=== PATIENT | female | born 1940 | race Hispanic/Latino ===

== ENCOUNTER 2018-03-11 09:48 | Observation (INO) | payer MEDICARE ==
[2018-03-09 09:20] VITALS: BMI 42.0
[2018-03-11] MEDS ORDERED: Lidocaine 1% Inj (20ml) IJ ONE (10:19)
--- NOTE | 2018-03-11 10:26 | CP.SDSHP ---
Same Day Surgery H & P - History Proposed Procedure: Surgical repair of left achilles tendon rupture Pre-Op Diagnosis: Left achilles tendon rupture - Allergies Allergies: Allergies doxycycline [From Vibramycin] Allergy (Verified 03/09/18 09:21) RASH - Date & Time Date: 03/11/18 Time: 17:00 Short Stay Discharge - Short Stay Discharge Admitting Diagnosis/Reason for Visit: S86.012A/G89.11 Disposition: HOME/ ROUTINE Referrals: Haseeb Mcconnell MD [Staff Provider] - Taran Atwood MD, PhD [Primary Care Provider] - Instructions: Achilles Tendon Rupture (DC), Nerve Blocks Additional Instructions (Diet, Activity): -Patient in good/stable condition for discharge home -Pt to resume medications per medical reconciliation -Resume regular diet Please keep dressing clean, dry, & intact to surgical site -Use plastic bag over bandage for showering -Wear post op shoe at all times when ambulating -Call clinic if you see signs of infection (redness, swelling, malodor) -Please make an appointment to see Dr. Mcconnell in office/clinic within 1 week for post-op check Progress Note/Discharge Note with Instructions: - Patient evaluated bedside in recovery s/p surgical procedure. - After surgical procedure patient in NAD - (+) Void, (+) Appetite - Capillary refill time <3s and NVSI intact. - Patient denies complaints at this time - Post operative instructions and plan of care explained to patient at length. - Pt. acknowledges understanding. - Patient stable for DC per podiatric surgery
--- NOTE | 2018-03-11 10:26 | CP.PCM.PN ---
Subjective - Date & Time of Evaluation Date of Evaluation: 03/11/18 Time of Evaluation: 10:25 - Subjective Subjective: 77 yo female patient seen and evaluated for left achilles repair surgery. Patient fell about a month ago, went to a [facility] where she was diagnosed with a bad sprain, then followed up in Dr. Mcconnell's office when the pain wasn' t resolving, where she was diagnosed with an achilles tendon tear. She is in mild pain today and has been taking tylenol as needed for the pain. She stopped taking her baby asprin and clopidogrel on Friday. Her last meal was at 8pm last night and she denies drinking or eating anything since that time. She has had surgeries in the past and denies any reactions to anesthesia. Patients is accompanying her bedside. Denies N/F/V/SOB/CP. PMHx: HTN Social: Denies tobacco use All: NKDA Objective - Medications Medications: Current Medications Bupivacaine HCl (Marcaine 0.5%) 20 ml IJ ONCE ONE Stop: 03/11/18 10:20 Cefazolin Sodium 2 gm/ Sodium (Chloride) 100 mls @ 100 mls/hr IVPB ONCE ONE PRN Reason: Protocol Stop: 03/11/18 11:18 Sodium Chloride (Sodium Chloride 0.9%) 1,000 mls @ 0 mls/hr IV .Q0M CHUY PRN Reason: Per Protocol Stop: 03/12/18 10:19 Lidocaine HCl (Lidocaine 1% (20ml)) 20 ml IJ ONCE ONE Stop: 03/11/18 10:20 - Constitutional Appears: Well, Non-toxic, No Acute Distress - Head Exam Head Exam: ATRAUMATIC, NORMOCEPHALIC - Extremities Exam Additional comments: LLE focused exam: Vascular: DP/PT 2/4, CFT <3 seconds, mild edema to left ankle, TG WNL Ortho: Tenderness to palpation of calf, pain upon palpation of achilles tendon, MMT 4/5 due to patient guarding. Palpable gap to left achilles tendon. Neuro: Gross and protective sensation intact Derm: No ecchymosis, no open lesions, no erythema, no clincal signs of infection - Neurological Exam Neurological Exam: Alert, Awake, Oriented x3 - Psychiatric Exam Psychiatric exam: Normal Affect, Normal Mood Assessment and Plan - Assessment and Plan (Free Text) Assessment: 77 yo female patient seen and evaluated for left achilles repair surgery. Plan: Pt was seen and examined in SDS Pt NPO status was confirmed All pre-op testing and clearance in chart Pt has exhausted all conservative treatment at this time and is opting for surgical intervention Pt was explained procedure and post-operative course All pt's questions were answered to satisfaction No guarantees were made Pt understands all risks, benefits and complications of procedure Pt will follow-up with Dr. Mcconnell within 1 week of surgery
[2018-03-11] MEDS ORDERED: Sodium Chloride 0.9% 1,000 ML IV SCH (10:30)
[2018-03-11] MEDS ORDERED: Propofol 10 mg/ml Inj (20 ML) ONE (11:03)
[2018-03-11] MEDS ORDERED: Succinylcholine 200 mg/10 ml Inj IV ONE (11:03)
[2018-03-11] MEDS ORDERED: Etomidate 20 mg/10ml Inj IV ONE (11:04)
[2018-03-11] MEDS ORDERED: Bupivacaine HCl 0.25% PF (30 ml) Inj ONE (11:04)
[2018-03-11] MEDS ORDERED: EPINEPHrine 1 mg/ml (1:1000) Inj ONE (11:04)
[2018-03-11] MEDS ORDERED: Rocuronium 10 mg/ml (5 ml) ONE (11:04)
[2018-03-11] MEDS ORDERED: Lactated Ringer's 1,000 ML IV ONE ×3 (11:45→15:00)
[2018-03-11] MEDS ORDERED: Bupivacaine 0.5% Inj(30mL) IJ ONE (11:45)
[2018-03-11] MEDS ORDERED: Lidocaine 2% PF (10 ml) Amp ONE (11:54)
[2018-03-11] MEDS ORDERED: Bupivacaine HCl 0.5% PF (30 ml) Inj ONE (11:54)
[2018-03-11] MEDS ORDERED: ceFAZolin IV 1 gm in Dextrose 2 GM/100 ML BAG IVPB ONE (11:54)
[2018-03-11] MEDS ORDERED: ceFAZolin IV 2 gm in Dextrose 2 GM/50 ML BAG IVPB ONE (12:00)
[2018-03-11] MEDS ORDERED: Ropivacaine 0.5% 30ML IV ONE (12:23)
[2018-03-11] MEDS ORDERED: Dexamethasone 4 mg/1 ml ONE (13:16)
[2018-03-11] MEDS ORDERED: ePHEDrine 50 mg/ml Inj ONE (13:42)
[2018-03-11] MEDS ORDERED: Oxycodone/Acetaminophen 5/325 mg Tab PO PRN (15:34)
--- NOTE | 2018-03-11 15:40 | PCM.SURG1 ---
Surgeon's Initial Post Op Note - Surgeon's Notes Surgeon: Dr. Mcconnell Hand Filer Balance Wheel: Dr. Luu, PGY 3, Dr. Rubio PGY3, Dr. Benitez, PGY 2 Type of Anesthesia: General Endo Anesthesia Administered By: Dr. Efra Shea Pre-Operative Diagnosis: Left achilles tendon rupture Operative Findings: See dictation. M:2-0 fiberwire, arthrex suturetaks, 2-0 vicryl, 3-0 vicryl, 4-0 vicryl, 4-0 monocril Post-Operative Diagnosis: same Operation Performed: Surgical repair of left achilles rupture Specimen/Specimens Removed: none Estimated Blood Loss: EBL {In ML}: 2 Blood Products Given: N/A Drains Used: No Drains Post-Op Condition: Good Date of Surgery/Procedure: 03/11/18 Time of Surgery/Procedure: 15:43
[2018-03-11] MEDS ORDERED: HYDROmorphone 0.5 mg/0.5 ml ISec IVP PRN (15:49)
--- NOTE | 2018-03-11 17:48 | CP.PCM.HP ---
History of Present Illness - History of Present Illness History of Present Illness: 77 YO F w/ PMH of HTN, CAD, arthritis, obstructed sleep apnea is being admitted for observation s/p Left Achilles repair POD 0. - Patient fell one month ago and was diagnosed with ankle sprain at [facility]. After limited improvement had gone to Dr. Riddle office and was diagnosed with achlles tendon repair. - Patient doing well on POD 0. Tolerated the procedure well. Pain is well controlled. She is able to move her toes and sensation is intact. PMH: HTN. Obstructed sleep apnea, CAD, Rosacea, Arthritis PSH: Gallbladder, partial hysterectomy, B/L knee replacement Allergy: Environmental SH: Denies illcit drug use, lives with . Present on Admission - Present on Admission Any Indicators Present on Admission: No Past Patient History - Past Medical History & Family History Past Medical History?: Yes - Past Social History Smoking Status: Never Smoked - CARDIAC Hx Cardiac Disorders: Yes Hx Hypertension: Yes - PULMONARY Hx Respiratory Disorders: No - NEUROLOGICAL Hx Neurological Disorder: No - HEENT Hx HEENT Problems: Yes Hx Cataracts: Yes (mild) Hx Macular Degeneration: Yes (mild) - RENAL Hx Chronic Kidney Disease: No - ENDOCRINE/METABOLIC Hx Endocrine Disorders: No - HEMATOLOGICAL/ONCOLOGICAL Hx Blood Disorders: No - INTEGUMENTARY Hx Dermatological Problems: No - MUSCULOSKELETAL/RHEUMATOLOGICAL Hx Musculoskeletal Disorders: Yes Hx Arthritis: Yes (general/hands) - GASTROINTESTINAL Hx Gastrointestinal Disorders: No - GENITOURINARY/GYNECOLOGICAL Hx Genitourinary Disorders: No - PSYCHIATRIC Hx Psychophysiologic Disorder: No - SURGICAL HISTORY Hx Surgeries: Yes Hx Cholecystectomy: Yes Hx Hysterectomy: Yes Hx Orthopedic Surgery: Yes (total knees bilateral) Other/Comment: trigger finger bilateral,rectal cyst,plantar wart on left foot - ANESTHESIA Hx Anesthesia: Yes Hx Anesthesia Reactions: No Has any member of the family had a problem w/ anesthesia?: No Meds Allergies/Adverse Reactions: Allergies Allergy/AdvReac Type Severity Reaction Status Date / Time doxycycline [From Vibramycin] Allergy RASH Verified 03/11/18 11:08 Physical Exam - Constitutional Appears: No Acute Distress - Head Exam Head Exam: NORMAL INSPECTION - Eye Exam Eye Exam: Normal appearance - ENT Exam ENT Exam: Mucous Membranes Moist, Normal Exam - Respiratory Exam Respiratory Exam: Clear to Auscultation Bilateral, NORMAL BREATHING PATTERN. absent: Rhonchi, Wheezes - Cardiovascular Exam Cardiovascular Exam: REGULAR RHYTHM, +S1, +S2 - GI/Abdominal Exam GI & Abdominal Exam: Normal Bowel Sounds, Soft. absent: Tenderness - Extremities Exam Additional comments: left foot immobilized and dressing C/D/I. Patient able to move toes, Capilary refill <2 sec, sensation intact No right calf tenderness - Neurological Exam Neurological exam: Alert, CN II-XII Intact, Oriented x3 - Skin Skin Exam: Normal Color, Warm Results - Vital Signs Recent Vital Signs: Last Vital Signs Temp 97.2 F L 03/11/18 15:55 Pulse 52 L 03/11/18 17:20 Resp 18 03/11/18 17:20 BP 121/79 03/11/18 17:20 Pulse Ox 97 03/11/18 17:20 Assessment & Plan - Assessment and Plan (Free Text) Assessment: 1) HTN - Hydrocholorathiazide 12.5 mg every other day - Bystolic 20 mg daily - Will start medication tomorrow morning currently well controlled 2) S/P Left achilles tendon repair - POD 0 - pain medication ordered - Podietry consulted 3)Mild intermitant asthma - Ventolin - Singulair 10 mg PO 4) Obstructive Sleep apnea -CPAP ordered FIO2: 21% pressure: 9 5) CAD - Asprin 81 mg daily 6)DVT prophylaxis - SCD for now - Ghassan discuss with surgical team and start lovenox tomorrow morning.
[2018-03-11] MEDS ORDERED: Lactated Ringer's 500 ML IV ONE (18:00)
[2018-03-11] MEDS ORDERED: Albuterol HFA 90 mcg/actuation (8 g) INH PRN (18:23)
[2018-03-11] MEDS: Lactated Ringer's 1,000 ML IV SCH (22:35)
[2018-03-12] MEDS: Lactated Ringer's 1,000 ML IV SCH (00:24)
--- NOTE | 2018-03-12 07:01 | PCM.ANESB2 ---
Popliteal Nerve Block - Popliteal Nerve Block Date of Procedure: 03/11/18 (Performed at 1530) Anesthesiologist: Víctor Shea Pre-Procedure Diagnosis: L achilles tendon tear Post-Procedure Diagnosis: L achilles tendon tear Procedure Performed: Popliteal Nerve Block Left - Procedure Popliteal Nerve Block: This procedure was explained to the patient that it is for post-operative pain management. Consent was obtained after a thorough discussion with the patient regarding the benefits and possible complications of local anesthetic block of the sciatic nerve at the popliteal level. The patient was brought to the operating room and standard monitors are applied. Time-out was held with the circulating nurse to confirm the correct surgery and the appropriate block. After safetly inducing general anesthesia and placing an endotracheal tube, the patient's operative leg was gently raised and supported and the groove in between the biceps femoris and vastus lateralis muscles was carefully palpated. The skin approximately 8cm above the popliteal crease was then marked. The ultrasound transducer was then applied to the posterior thigh approximately 8cm above the popliteal crease in the transverse plane and the sciatic nerve before its division was visualized lateral to the popliteal artery and in between the bicep femoris and semimembranosus/semitendinosus muscles. After identification, the lateral portion of the thigh was prepped with chlorhexidine. At this point, a # 21 gauge Stimuplex insulated 4 inch needle was inserted into pre-marked area and advanced in a perpendicular direction. The needle was inserted above the ultrasound transducer in-plane towards the sciatic nerve in a [id number] direction. Needle advancement was performed carefully under direct ultrasound visualization. Nerve stimulator was used and dorsiflexion of the left foot was elicited at a current of 1 MA. After repeated negative aspiration, 30cc of 0.5 % ropivacaine was injected. Under ultrasound guidance the local anesthetics were observed surrounding sciatic nerve . The needle was removed intact and sterile dressing was applied. A repeat block was performed at the end of the operative procedure with 10cc 0.25% bupivacaine as there was concern that the initial nerve block did not work adequately during the case. The patient tolerated the popliteal nerve block well with stable vital signs and was subsequently prepared for the surgery. The patient stated that her operative leg was comfortably numb from the nerve block and only endorsed tourniquet pain at the end of the procedure.
[2018-03-12 08:16] LABS: BASO % 0.1 % (0.0-2.0); HEMOGLOBIN 12.6 g/dL (12.0-16.0); LYMPH # 1.4 K/uL (1.0-4.3); LYMPH % 10.7 % (20.0-40.0); MEAN CELL VOLUME 84.2 fl (81.0-99.0); MEAN CORPUSCULAR HEMOGLOBIN 28.1 pg (27.0-31.0); MEAN CORPUSCULAR HGB CONC 33.4 g/dL (33.0-37.0); MEAN PLATELET VOLUME 8.3 fl (7.2-11.7); MONO # 1.2 K/uL (0.0-0.8); NEUT # 10.5 K/uL (1.8-7.0); NEUT % 80.2 % (50.0-75.0); RBC 4.47 Mil/uL (3.80-5.20); RED CELL DISTRIBUTION WIDTH 14.4 % (11.5-14.5); WHITE BLOOD COUNT 13.1 K/uL (4.8-10.8)
--- NOTE | 2018-03-12 09:17 | CP.PCM.DIS ---
Provider - Provider Date of Admission: 03/11/18 18:14 Attending physician: Therese Sotelo MD Primary care physician: Taran Atwood MD Phd Consults: Podiatry, Dr. Mcconnell Time Spent in preparation of Discharge (in minutes): 40 Diagnosis - Discharge Diagnosis (1) Rupture of left Achilles tendon Status: Acute Comment: S/p Repair, POD#1 (2) Hypertension Status: Chronic Comment: - Hydrocholorathiazide 12.5 mg every other day. - Bystolic 20 mg daily (3) Mild intermittent asthma Status: Acute Comment: - Ventolin. - Singulair 10 mg PO (4) ESTELLE (obstructive sleep apnea) Status: Acute Comment: CPAP (5) CAD (coronary artery disease) Status: Acute Hospital Course - Lab Results Lab Results: Most Recent Lab Values WBC 13.1 K/uL (4.8-10.8) H 03/12/18 07:58 RBC 4.47 Mil/uL (3.80-5.20) 03/12/18 07:58 Hgb 12.6 g/dL (12.0-16.0) 03/12/18 07:58 Hct 37.6 % (34.0-47.0) 03/12/18 07:58 MCV 84.2 fl (81.0-99.0) 03/12/18 07:58 MCH 28.1 pg (27.0-31.0) 03/12/18 07:58 MCHC 33.4 g/dL (33.0-37.0) 03/12/18 07:58 RDW 14.4 % (11.5-14.5) 03/12/18 07:58 Plt Count 207 K/uL (130-400) 03/12/18 07:58 MPV 8.3 fl (7.2-11.7) 03/12/18 07:58 Neut % (Auto) 80.2 % (50.0-75.0) H 03/12/18 07:58 Lymph % (Auto) 10.7 % (20.0-40.0) L 03/12/18 07:58 [place] % (Auto) 9.0 % (0.0-10.0) 03/12/18 07:58 Eos % (Auto) 0.0 % (0.0-4.0) 03/12/18 07:58 Baso % (Auto) 0.1 % (0.0-2.0) 03/12/18 07:58 Neut # (Auto) 10.5 K/uL (1.8-7.0) H 03/12/18 07:58 Lymph # (Auto) 1.4 K/uL (1.0-4.3) 03/12/18 07:58 [place] # (Auto) 1.2 K/uL (0.0-0.8) H 03/12/18 07:58 Eos # (Auto) 0.0 K/uL (0.0-0.7) 03/12/18 07:58 Baso # (Auto) 0.0 K/uL (0.0-0.2) 03/12/18 07:58 POC Glucose (mg/dL) 125 mg/dL (65-110) H 03/12/18 05:43 - Hospital Course Hospital Course: 77 y/o F with PMH of HTN, ESTELLE, Mild intermittent asthma, and CAD admitted to [facility] for evaluation and treatment of s/p Left Achilles tendon repair. Podiatry, Dr. Mcconnell was consulted for the surgery. Patient is s/p POD#3, Left Achilles tendon repair, pain is controlled with medications. Patient was seen by PT who recommended TCU for further physical therapy and treatment (not accepted). Patient refused subacute rehab. Home care was referred for PT/DRAFTING TEACHER and Walker was delivered to her house yesterday. Patient is stable, having BMs and agrees with discharge plan, instructed to c/w home medications except bystolic ( Patient has all the medications, doesn't need any refills). Patient Spoke with Dr. Mcconnell for Tramadol Rx; who will send it to her pharmacy for pain management. Patient has percocet at home. Patient was discharged home with instructions to follow up with PMD, and Follow up with podiatry with in 1 week of discharge. Medications: C/w home medications except Bystolic (stable BP and bradycardic in hospital w/o Bystolic), follow up PMD for further managements. C/w pain management. Discharge Exam - Head Exam Head Exam: NORMAL INSPECTION - Eye Exam Eye Exam: EOMI, Normal appearance, PERRL Pupil Exam: NORMAL ACCOMODATION - Respiratory Exam Respiratory Exam: Clear to PA & Lateral, NORMAL BREATHING PATTERN. absent: Accessory Muscle Use, Chest Wall Tenderness, Decreased Breath Sounds, Prolonged Expiratory Phase, Rales, Rhonchi, Respiratory Distress - Cardiovascular Exam Cardiovascular Exam: REGULAR RHYTHM, +S1, +S2 - GI/Abdominal Exam GI & Abdominal Exam: Normal Bowel Sounds, Soft. absent: Distended, Organomegaly , Tenderness - Extremities Exam Additional comments: left foot immobilized and dressing C/D/I. Patient able to move toes, Capilary refill <2 sec, sensation intact No right calf tenderness - Back Exam Back exam: absent: CVA tenderness (L), CVA tenderness (R) - Neurological Exam Neurological exam: Alert, CN II-XII Intact, Oriented x3 - Psychiatric Exam Psychiatric exam: Normal Affect, Normal Mood - Skin Skin Exam: Dry, Intact, Normal Color, Warm Discharge Plan - Follow Up Plan Condition: GOOD Disposition: HOME/ ROUTINE Instructions: Achilles Tendon Rupture (DC), Nerve Blocks Additional Instructions: -Patient in good/stable condition for discharge home -Pt to resume medications per medical reconciliation (Hold Bystolic till seen by PMD) -Resume regular diet Please keep dressing clean, dry, & intact to surgical site -Use plastic bag over bandage for showering -Wear post op shoe at all times when ambulating -Call clinic if you see signs of infection (redness, swelling, malodor) -Please make an appointment to see Dr. Mcconnell in office/clinic within 1 week for post-op check Referrals: Haseeb Mcconnell MD [Staff Provider] - Taran Atwood MD, PhD [Primary Care Provider] -
[2018-03-12 10:12] LABS: BLOOD UREA NITROGEN 22 mg/dl (7-17); CALCIUM 8.7 mg/dL (8.4-10.2); GFR NON-AFRICAN AMERICAN > 60
[2018-03-12] MEDS: Benzocaine/Menthol (Cepacol) Lozenge PO PRN ×3 (13:34→22:43)
--- NOTE | 2018-03-12 16:21 | CP.PCM.PN ---
Subjective - Date & Time of Evaluation Date of Evaluation: 03/12/18 Time of Evaluation: 08:00 - Subjective Subjective: Patient was seen and examined this morning at bedside, NAD. Patient is s/p POD#1 , Left Achilles tendon repair, reports well controlled pain on medications. patient is tolerating PO intake, Denies nay acute event overnight, denies any chest pain, SOB, weakness, dizziness, abdominal pain or urinary symptoms. Objective - Vital Signs/Intake and Output Vital Signs (last 24 hours): Temp Pulse Resp BP Pulse Ox 98.6 F 50 L 20 135/70 97 03/12/18 16:07 03/12/18 16:07 03/12/18 16:07 03/12/18 16:07 03/12/18 16:07 Intake and Output: 03/12/18 03/12/18 06:59 18:59 Output Total 800 Balance -800 - Medications Medications: Current Medications Acetaminophen (Tylenol 325mg Tab) 650 mg PO Q4 PRN PRN Reason: Pain, Mild (1-3) Albuterol (Ventolin Hfa 90 Mcg/Actuation (8 G)) 2 puff INH RQ6 PRN PRN Reason: Shortness of Breath Aspirin (Ecotrin) 81 mg PO DAILY [facility] Last Admin: 03/12/18 08:49 Dose: Not Given Benzocaine/Menthol (Cepacol Sore Throat) 1 laly PO Q2 PRN PRN Reason: Sore Throat Last Admin: 03/12/18 13:34 Dose: 1 laly Celecoxib (Celebrex) 200 mg PO BID [facility] Last Admin: 03/12/18 08:43 Dose: 200 mg Diazepam (Valium) 5 mg PO Q8 PRN PRN Reason: Muscle spasm Docusate Sodium (Colace) 100 mg PO BID [facility] Last Admin: 03/12/18 13:59 Dose: 100 mg Hydrochlorothiazide (Microzide) 12.5 mg PO QOTHERDAY [facility] Last Admin: 03/12/18 08:43 Dose: 12.5 mg Loratadine (Claritin) 10 mg PO DAILY [facility] Last Admin: 03/12/18 08:49 Dose: Not Given Oxycodone/Acetaminophen (Percocet 5/325 Mg Tab) 1 tab PO Q4 PRN PRN Reason: Pain, moderate (4-7) Stop: 03/14/18 15:35 Oxycodone/Acetaminophen (Percocet 5/325 Mg Tab) 2 tab PO Q6 PRN PRN Reason: Pain, severe (8-10) Stop: 03/14/18 15:35 - Labs Labs: 03/12/18 07:58 03/12/18 09:48 - Constitutional Appears: No Acute Distress - Head Exam Head Exam: NORMAL INSPECTION - Eye Exam Eye Exam: EOMI, Normal appearance, PERRL Pupil Exam: NORMAL ACCOMODATION - ENT Exam ENT Exam: Mucous Membranes Moist - Neck Exam Neck Exam: Full ROM, Normal Inspection - Respiratory Exam Respiratory Exam: Clear to Ausculation Bilateral, NORMAL BREATHING PATTERN - Cardiovascular Exam Cardiovascular Exam: REGULAR RHYTHM, +S1, +S2 - GI/Abdominal Exam GI & Abdominal Exam: Soft, Normal Bowel Sounds. absent: Tenderness, Rebound - Extremities Exam Additional comments: left foot immobilized and dressing C/D/I. Patient able to move toes, Capilary refill <2 sec, sensation intact No right calf tenderness - Back Exam Back Exam: NORMAL INSPECTION. absent: CVA tenderness (L), CVA tenderness (R) - Neurological Exam Neurological Exam: Alert, Awake, CN II-XII Intact, Oriented x3 - Psychiatric Exam Psychiatric exam: Normal Affect - Skin Skin Exam: Dry, Intact, Normal Color, Warm Assessment and Plan (1) Rupture of left Achilles tendon Status: Acute (2) Hypertension Status: Chronic (3) Mild intermittent asthma Status: Acute (4) ESTELLE (obstructive sleep apnea) Status: Acute (5) CAD (coronary artery disease) Status: Acute - Assessment and Plan (Free Text) Assessment: S/P Left achilles tendon repair - POD#1 - pain medication: Oxycodone - Podiatry consulted, Dr. Mcconnell - Follow up PT recommendations - C/w diet, Spirometry and follow up Podiatry recommendations HTN - Hydrocholorathiazide 12.5 mg every other day - Bystolic 20 mg daily held due to derrick and normotensive Mild intermitant asthma - Ventolin - Singulair 10 mg PO Obstructive Sleep apnea -CPAP PRN CAD - Asprin 81 mg daily DVT prophylaxis - SCD for now - Lovenox 40mg SC daily
[2018-03-12] MEDS: Enoxaparin 40 mg Syringe SC SCH (21:20)
[2018-03-13] MEDS: Oxycodone/Acetaminophen 5/325 mg Tab PO PRN ×2 (06:19→19:03)
--- NOTE | 2018-03-13 06:28 | OP ---
Copied To: Milady Luu DPM Attending MD: Haseeb Mcconnell DPM PROCEDURE DATE: 03/11/2018 PREOPERATIVE DIAGNOSIS: Complete rupture of the left Achilles tendon. POSTOPERATIVE DIAGNOSIS: Complete rupture of the left Achilles tendon. PROCEDURE PERFORMED: Surgical repair and reinforcement of the left Achilles tendon with the use of tendon anchors and biomaterial graft and use of platelet-rich plasma. SURGEON: Haseeb Mcconnell DPM. CURRICULUM ADVISORY TEACHER: Milady Luu DPM, PGY-3; Tania Rubio DPM, PGY-3; and Dr. Rey Benitez DPM, PGY-2. ANESTHESIOLOGIST: Dr. Shea. ANESTHESIA: General with popliteal block. INDICATIONS: The patient is a 77-year-old female with the above-mentioned diagnosis. The patient is being treated by Dr. Mcconnell in the office on outpatient basis where she has exhausted multiple forms of conservative treatment. The patient seeks surgical intervention at this time. All risks, benefits, and possible complications to the proposed procedure have been explained to the patient at length. The patient verbalizes understanding and wishes to proceed. All questions were answered. No guarantees were given nor implied. Consent was signed and n.p.o. status was confirmed prior to bringing the patient to the operating room. OPERATIVE PROCEDURE: The patient was brought into the operating room and placed on the operating room table in a prone position. A well-padded pneumatic ankle tourniquet was applied to the patient's left ankle in supramalleolar position. Once general anesthesia was achieved, the left foot was then prepped and draped in the usual sterile manner and the procedure began. DESCRIPTION OF PROCEDURE: Surgical repair and reinforcement of the left Achilles tendon with the use of tendon anchors and Biograft material and platelet-rich plasma. Attention was directed to the posterior aspect of the left leg when approximately 10 cm linear longitudinal was made just, medial to the midline of the Achilles tendon. The incision was deepened to the subcutaneous tissue using a combination of sharp and blunt dissection. Care was taken to identify and retract all vital neurovascular structures. All bleeders were cauterized and ligated as necessary. Careful dissection was then taken down to allow all paratenon. Once this was reached, full thickness passes were performed both medially and laterally. Next, a retractor was placed. All neurovascular structures are protected. A longitudinal incision was made in the paratenon and opening up to close the tendon. There was noted to be a complete rupture of the tendon, approximately 3 cm proximal to the insertion point. The tendon was debrided at this time of hematoma as well as frayed tendon. The surgical site was then irrigated with copious amounts of normal sterile saline. The tendon did appear that there was sufficient length in order to perform a primary repair. Next, attention was directed to the calcaneus where two incisions were made straight down to bone. Next, two parallel drill holes were drilled in the calcaneum. Then, a 3.5 SutureTak was inserted into each drill hole. Next, the sutures from the SutureTak were then used to weave the Achilles tendon and reapproximate it with #2-0 FiberWire. The tendon came together with the tight connection, and the remaining fibroid was used to reinforce the tendon. Next, an Integra graft was use to wrap around the tendon and secured with 2-0 FiberWire. Anesthesia matilde up 30 mL of the patient's own platelet-rich plasma, and then it was spun on the back table. Using the [email or web address] system, a PRP disk was prepared and inserted on top of the Achilles tendon and was covered by the rest of the Integra graft which was sutured in place with 2-0 FiberWire. The surgical site was then irrigated with copious amounts of normal sterile saline. Next, 2-0 Vicryl was then used to reinforce the graft. The peritoneum was then reapproximated with #3-0 Vicryl. Subcutaneous tissue was reapproximated with #4-0 Vicryl and the remaining PRP was then introduced. The skin was then reapproximated with #4-0 Monocryl. Postoperative dressings included Steri-Strips, Adaptic, 4x4, Kerlix in a well-padded posterior splint. A popliteal block was then given by the Anesthesia. At the end of the procedure, tourniquet was let down. POSTOPERATIVE CONDITION: The patient tolerated the anesthesia and procedure well with no apparent complications or complaints. The patient was escorted from the operating room to the recovery room with vital signs stable and neurovascular structures intact. The patient will follow up with Dr. Haseeb Mcconnell in his office. Milady Luu DPM Haseeb YARA Mcconnell [facility] # [id number] LINDY
[2018-03-13] MEDS: Enoxaparin 40 mg Syringe SC SCH (10:10)
--- NOTE | 2018-03-13 12:27 | CP.PCM.PN ---
Addendum entered and electronically signed by Radha Saab MD 03/13/18 13:41: Patient refused subacute rehab c/o constipation since last 4 days, will start patient on Lactulose and follow up Original Note: Subjective - Date & Time of Evaluation Date of Evaluation: 03/13/18 Time of Evaluation: 08:00 - Subjective Subjective: Patient seen and examined this morning at bedside, NAD. Patient is POD#2 s/p Left Achilles tendon repair, c/o pain but well controlled on medications. Patient is tolerating PO diet, seen by PT yesterday, non-weight bearing on left. PT recommended TCU. Patient denies any chest pain, SOB, dizziness, abdominal pain, urinary symptoms or weakness. Patient will need a walker due to non-weight bearing status, inability to stably ambulate with crunches. Objective - Vital Signs/Intake and Output Vital Signs (last 24 hours): Temp Pulse Resp BP Pulse Ox 97.7 F 50 L 19 126/75 96 03/13/18 08:11 03/13/18 08:11 03/13/18 08:11 03/13/18 08:11 03/13/18 08:11 - Medications Medications: Current Medications Acetaminophen (Tylenol 325mg Tab) 650 mg PO Q4 PRN PRN Reason: Pain, Mild (1-3) Albuterol (Ventolin Hfa 90 Mcg/Actuation (8 G)) 2 puff INH RQ6 PRN PRN Reason: Shortness of Breath Aspirin (Ecotrin) 81 mg PO DAILY [facility] Last Admin: 03/13/18 09:09 Dose: Not Given Benzocaine/Menthol (Cepacol Sore Throat) 1 laly PO Q2 PRN PRN Reason: Sore Throat Last Admin: 03/12/18 22:43 Dose: 1 laly Celecoxib (Celebrex) 200 mg PO BID [facility] Last Admin: 03/13/18 09:09 Dose: 200 mg Diazepam (Valium) 5 mg PO Q8 PRN PRN Reason: Muscle spasm Last Admin: 03/12/18 22:38 Dose: 5 mg Docusate Sodium (Colace) 100 mg PO BID [facility] Last Admin: 03/13/18 09:08 Dose: 100 mg Enoxaparin Sodium (Lovenox) 40 mg SC DAILY [facility] PRN Reason: Protocol Last Admin: 03/13/18 10:10 Dose: Not Given Hydrochlorothiazide (Microzide) 12.5 mg PO QOTHERDAY [facility] Last Admin: 03/12/18 08:43 Dose: 12.5 mg Loratadine (Claritin) 10 mg PO DAILY [facility] Last Admin: 03/13/18 09:12 Dose: Not Given Montelukast Sodium (Singulair) 10 mg PO [facility] Last Admin: 03/12/18 22:38 Dose: 10 mg Oxycodone/Acetaminophen (Percocet 5/325 Mg Tab) 1 tab PO Q4 PRN PRN Reason: Pain, moderate (4-7) Stop: 03/14/18 15:35 Last Admin: 03/13/18 06:19 Dose: 1 tab Oxycodone/Acetaminophen (Percocet 5/325 Mg Tab) 2 tab PO Q6 PRN PRN Reason: Pain, severe (8-10) Stop: 03/14/18 15:35 Sennosides (Senokot Tab) 8.6 mg PO [facility] Last Admin: 03/13/18 10:18 Dose: 8.6 mg - Labs Labs: 03/12/18 07:58 03/12/18 09:48 - Constitutional Appears: No Acute Distress - Head Exam Head Exam: NORMAL INSPECTION - Eye Exam Eye Exam: EOMI, Normal appearance, PERRL - ENT Exam ENT Exam: Mucous Membranes Moist, Normal Exam - Neck Exam Neck Exam: Normal Inspection - Respiratory Exam Respiratory Exam: Clear to Ausculation Bilateral, NORMAL BREATHING PATTERN. absent: Accessory Muscle Use, Chest Wall Tenderness, Decreased Breath Sounds, Prolonged Expiratory Phase, Wheezes, Respiratory Distress - Cardiovascular Exam Cardiovascular Exam: REGULAR RHYTHM, +S1, +S2 - GI/Abdominal Exam GI & Abdominal Exam: Soft, Normal Bowel Sounds. absent: Tenderness - Extremities Exam Additional comments: left foot immobilized and dressing C/D/I. Patient able to move toes, Capilary refill <2 sec, sensation intact No right calf tenderness - Back Exam Back Exam: NORMAL INSPECTION. absent: CVA tenderness (L), CVA tenderness (R) - Neurological Exam Neurological Exam: Alert, Awake, CN II-XII Intact, Oriented x3 - Psychiatric Exam Psychiatric exam: Normal Affect - Skin Skin Exam: Dry, Intact, Normal Color, Warm Assessment and Plan (1) Rupture of left Achilles tendon Status: Acute (2) Hypertension Status: Chronic (3) Mild intermittent asthma Status: Acute (4) ESTELLE (obstructive sleep apnea) Status: Acute (5) CAD (coronary artery disease) Status: Acute - Assessment and Plan (Free Text) Assessment: A/P: 77 y/o F with PMH of HTN, ESTELLE, Mild intermittent asthma, and CAD admitted to [facility] for evaluation and treatment of s/p Left Achilles tendon repair, POD #2. S/P Left achilles tendon repair - POD#2, non weight bearing - pain medication: Oxycodone - Podiatry consulted, Dr. Mcconnell - PT recommendations: TCU - C/w diet, Spirometry and follow up Podiatry recommendations HTN - Hydrocholorathiazide 12.5 mg every other day - Bystolic 20 mg daily held due to derrick and normotensive Mild intermitant asthma - Ventolin - Singulair 10 mg PO Obstructive Sleep apnea -CPAP PRN CAD - Asprin 81 mg daily DVT prophylaxis - SCD for now - Lovenox 40mg SC daily
[2018-03-13] MEDS: Benzocaine/Menthol (Cepacol) Lozenge PO PRN ×2 (14:45→19:05)
[2018-03-13 16:48] VITALS: RESP 20
[2018-03-13] MEDS ORDERED: Enoxaparin 40 mg Syringe SC SCH (18:07)
[2018-03-13] MEDS ORDERED: Oxycodone/Acetaminophen 5/325 mg Tab PO PRN ×2 (19:00)
[2018-03-13] MEDS ORDERED: Oxycodone/Acetaminophen 5/325 mg Tab ONE (19:01)
[2018-03-14] MEDS: Enoxaparin 40 mg Syringe SC SCH (08:43)
[2018-03-14] MEDS: Benzocaine/Menthol (Cepacol) Lozenge PO PRN (10:26)
[2018-03-14 16:09] VITALS: BP 154/63; PULSE 51; TEMP 98.2; O2SAT 97
== END 2018-03-14 19:36 | disposition home or self-care (01) ==
LOC: H.OPSURG 09:48 → H.MEDSURG1 18:14 → UNDODISOB 03-13 14:47 → INTOOBSV 03-13 18:19 → OBSVTOIN 03-13 18:19
PROVIDERS: ADMIT Family Medicine Geriatric Medicine; ATTEND Family Medicine Geriatric Medicine
PROC: 0LQP0ZZ Repair Left Lower Leg Tendon, Open Approach (ICD-10-PCS; principal; 2018-03-11 12:00)
PROC: 30233R1 Transfusion of Nonautologous Platelets into Peripheral Vein, Percutaneous Approach (ICD-10-PCS; 2018-03-11 12:00)
DX: S86.012A Strain of left Achilles tendon, initial encounter (principal); I10 Essential (primary) hypertension; M19.90 Unspecified osteoarthritis, unspecified site; I25.10 Atherosclerotic heart disease of native coronary artery without angina pectoris; J44.9 Chronic obstructive pulmonary disease, unspecified; G47.33 Obstructive sleep apnea (adult) (pediatric); W19.XXXA Unspecified fall, initial encounter; L71.9 Rosacea, unspecified; Z90.710 Acquired absence of both cervix and uterus; Z96.653 Presence of artificial knee joint, bilateral; J45.20 Mild intermittent asthma, uncomplicated; H35.30 Unspecified macular degeneration; Z79.899 Other long term (current) drug therapy; Z90.49 Acquired absence of other specified parts of digestive tract; Z79.82 Long term (current) use of aspirin; K59.00 Constipation, unspecified
CPT/HCPCS: 0232T; 27652; 36415; 80048; 82948; 85025; 94660; 97116; 97162; 97530; C1713; C1763; G0378; G8978; G8979; J0171; J0330; J0360; J0690; J1100; J1650; J2001; J2405; J2704; J3010; J7030; J7120

== ENCOUNTER 2018-05-05 10:34 | Day surgery (SDC) | payer MEDICARE ==
[2018-05-01 09:42] VITALS: BMI 42.5
[2018-05-05] MEDS ORDERED: Lidocaine 2% Inj (20ml) INFIL ONE (11:58)
[2018-05-05] MEDS ORDERED: ceFAZolin IV 2 gm in Dextrose 2 GM/50 ML BAG IVPB ONE (11:58)
[2018-05-05] MEDS ORDERED: Bupivacaine HCl 0.5% PF (30 ml) Inj IJ ONE (11:58)
[2018-05-05 12:02] VITALS: RESP 18
[2018-05-05] MEDS ORDERED: Propofol 10 mg/ml Inj (20 ML) ONE (12:09)
--- NOTE | 2018-05-05 12:09 | CP.PCM.PN ---
Subjective - Date & Time of Evaluation Date of Evaluation: 05/05/18 Time of Evaluation: 12:02 - Subjective Subjective: Podiatry progress note for attending Dr. Mcconnell: 78 y/o F patient with PMH of HTN seen and evaluated preoperativly for L Achilles tendon debridement with application of wound vac. Patient states that she is had Achilles rupture in March and she had surgery in March 11 and her wound hasn't been healed ever since . Patient states that she is aware of her surgery today. Patient confirmed her fasting stats today. Patient domingo any other pedal complaint. Patient denies any recent F/N/V/C or SOB. PMH: HTN, Asthma Allergies: NKDA Social: Denies tobacco, EtOH use or Illicit drug use Objective - Vital Signs/Intake and Output Vital Signs (last 24 hours): Temp Pulse Resp BP Pulse Ox 98.5 F 46 L 18 159/45 H 96 05/05/18 12:00 05/05/18 12:00 05/05/18 12:00 05/05/18 12:01 05/05/18 12:00 - Medications Medications: Current Medications Bupivacaine HCl (Marcaine 0.5% Pf (30 Ml)) 1 ml IJ ONCE ONE Stop: 05/05/18 11:59 Cefazolin Sodium 2 gm/ Sodium (Chloride) 100 mls @ 100 mls/hr IVPB ONCE ONE; P rotocol Stop: 05/05/18 12:57 Sodium Chloride 1,000 ml/ IV (SUPPLIES) 1,000 mls @ 6,531.72 mls/hr IV ONCE ONE Stop: 05/05/18 12:07 Lidocaine HCl (Lidocaine 2% 20ml Vial) 1 ml INFIL ONCE ONE Stop: 05/05/18 11:59 - Constitutional Appears: Well, Non-toxic, No Acute Distress - Head Exam Head Exam: ATRAUMATIC, NORMOCEPHALIC - Extremities Exam Additional comments: Left LE focused exam: Dressing left intact. Dressing was C/D/I with no strike through Vasc: Cap refill < 3 sec in all digits. Neuro: gross and protective sensations are intact. MSK: muscle power intact 5/5 in all groups. Patient can perform active ROM with her toes - Neurological Exam Neurological Exam: Alert, Awake, Oriented x3 - Psychiatric Exam Psychiatric exam: Normal Affect, Normal Mood Assessment and Plan - Assessment and Plan (Free Text) Assessment: 58 y/o F patient seen and evaluated at the bed side preoperatively for for L Achilles tendon debridement with application of Wound VAC. Plan: Patient seen and evaluated at the bedside Pt was explained procedure and post-operative course Pt understands all risks, benefits and Pt was seen and examined in SDS Pt NPO status was confirmed All Pre-op testing and clearance was in the chart Pt has exhausted all conservative treatment at this time and is opting for surgical inteAll pt's questions were answered to satisfaction No guarantees were made Benefits, risks and complications of procedure explained to the patient Pt will follow-up with Dr. Mcconnell in her office upon discharge.
--- NOTE | 2018-05-05 12:13 | CP.SDSHP ---
Same Day Surgery H & P - History Proposed Procedure: L Achilles tendon debridement with application of Wound VAC. Pre-Op Diagnosis: Left Achilles tendon nonhealing wound - Previous Medical/Surgical History Cardiac: Hypertension Pulmonary: Asthma Previous Surgical History: L Achilles tendon repair - Allergies Allergies: Allergies doxycycline [From Vibramycin] Allergy (Verified 03/11/18 11:08) RASH - Physical Exam Vital Signs: Vital Signs 05/05/18 05/05/18 12:00 12:01 Temperature 98.5 F Pulse Rate 46 L Respiratory 18 Rate Blood Pressure 149/49 L 159/45 H O2 Sat by Pulse 96 Oximetry - {Optional Preform as Required} Integument: Other Short Stay Discharge - Short Stay Discharge Admitting Diagnosis/Reason for Visit: S86.012A,T81.32 Disposition: HOME/ ROUTINE Referrals: Taran Atwood MD, PhD [Primary Care Provider] - Additional Instructions (Diet, Activity): -Patient in good/stable condition for discharge home -Pt to resume medications per medical reconciliation -Resume regular diet Please keep dressing clean, dry, & intact to surgical site -Use plastic bag over bandage for showering -Wear post op shoe at all times when ambulating -Call clinic if you see signs of infection (redness, swelling, malodor) -Please make an appointment to see Dr. Mcconnell in office/clinic within 1 week for post-op check
[2018-05-05 12:52] LABS: BASO % 0.6 % (0.0-2.0); EOS # 0.1 K/uL (0.0-0.7); EOS % 1.6 % (0.0-4.0); HEMOGLOBIN 13.2 g/dL (12.0-16.0); LYMPH # 1.7 K/uL (1.0-4.3); LYMPH % 22.8 % (20.0-40.0); MEAN CELL VOLUME 84.6 fl (81.0-99.0); MEAN CORPUSCULAR HEMOGLOBIN 28.3 pg (27.0-31.0); MEAN CORPUSCULAR HGB CONC 33.4 g/dL (33.0-37.0); MEAN PLATELET VOLUME 7.9 fl (7.2-11.7); MONO # 0.7 K/uL (0.0-0.8); MONO % 9.1 % (0.0-10.0); NEUT % 65.9 % (50.0-75.0); NRBC % 0.1 % (0.0-0.0); RBC 4.68 Mil/uL (3.80-5.20); RED CELL DISTRIBUTION WIDTH 13.9 % (11.5-14.5); WHITE BLOOD COUNT 7.6 K/uL (4.8-10.8)
[2018-05-05 13:03] LABS: CALCIUM 9.5 mg/dL (8.4-10.2)
[2018-05-05] MEDS ORDERED: Rocuronium 10 mg/ml (5 ml) ONE (13:07)
[2018-05-05] MEDS ORDERED: LIDOCAINE 2% 10ML 20 MG/ML VIAL IJ ONE (13:20)
[2018-05-05 13:31] LABS: INR 1.1; PROTHROMBIN TIME 11.9 Seconds (9.8-13.1)
[2018-05-05] MEDS ORDERED: Oxycodone/Acetaminophen 5/325 mg Tab PO PRN ×2 (13:41)
[2018-05-05] MEDS ORDERED: Dexamethasone 4 mg/1 ml ONE (13:54)
[2018-05-05] MEDS ORDERED: Lactated Ringer's 1,000 ML IV ONE (13:59)
[2018-05-05] MEDS ORDERED: Bupivacaine 0.25% Inj(30mL) IJ ONE (14:02)
--- NOTE | 2018-05-05 14:11 | PCM.SURG1 ---
Surgeon's Initial Post Op Note - Surgeon's Notes Surgeon: Dr. Haseeb Mcconnell, DPm Chemical Applicator: Adriana Dunham PGY1 Shagufta Santos pGY2 Type of Anesthesia: General LMA, Local Anesthesia Administered By: Dr. Hernandez Pre-Operative Diagnosis: Left achilles tendon non healing wound Operative Findings: see dictation. I: 20 cc 1:1 mixture of 2% lidocaine plain and 0.25% marcaine plain. M: ITZEL 10cm x 20cm negative pressure wound system Post-Operative Diagnosis: same Operation Performed: Left achilles tendon wound debridement and application of negative pressure wound therapy system Specimen/Specimens Removed: none Estimated Blood Loss: EBL {In ML}: 5 Blood Products Given: N/A Drains Used: No Drains Post-Op Condition: Good Date of Surgery/Procedure: 05/05/18 Time of Surgery/Procedure: 14:12
[2018-05-05] MEDS ORDERED: Lactated Ringer's 1,000 ML IV SCH (14:15)
[2018-05-05 16:17] VITALS: TEMP 97
[2018-05-05 17:14] VITALS: BP 128/80; PULSE 48; O2SAT 98
--- NOTE | 2018-05-06 08:43 | OP ---
PROCEDURE DATE: 05/05/2018 PREOPERATIVE DIAGNOSIS: Left Achilles tendon nonhealing wound. POSTOPERATIVE DIAGNOSIS: Left Achilles tendon nonhealing wound. PROCEDURES: 1. Left Achilles tendon wound debridement. 2. Application of negative-pressure wound therapy system. SURGEON: Haseeb Mcconnell DPM DRAMATIC ART TEACHER: Dr. Charla DPM, PGY-1; Dr. Santos, PGY-2. ANESTHESIOLOGIST: Dr. Hernandez. INDICATION: The patient is a 78-year-old male with the above diagnosis. The patient has exhausted all conservative treatment at this time and now requires surgical intervention. The patient signed the consent after careful explanation of risks, benefits, complications, and alternatives to the surgical procedures. No guarantees were given nor implied; n.p.o. status was confirmed prior to taking the patient to the OR. PREPARATION: The patient was brought in to the operating room and placed on the operating room table in a prone position. Timeout was performed for identification of the correct patient and procedure after induction of IV sedation. The patient received a total of 20 mL of 1:1 mixture of 0.25% Marcaine plain and 2% lidocaine plain in a local block type fashion to the distal aspect of the leg posteriorly. The left lower extremity was then prepped and draped in normal sterile manner and procedure began. No tourniquet was used during the procedure. PROCEDURE #1: Attention was directed to the posterior aspect of the left distal leg where the ulceration was located. Ulceration measured approximately 5 cm x 3 cm with a fibrotic base. Using Versajet on power level 7 and 10, the base of the ulceration was nonexcisionally debrided of all the fibrotic and nonviable tissue until fresh, healthy bleeding granular tissue appeared at the surgical field. Using #15 blade, the fibrotic tissue was excisionally debrided down to bleeding granular tissue. The ulcer was then irrigated with copious amount of normal sterile saline. PROCEDURE #2: The ITZEL 10 cm x 20 cm negative pressure wound system was then prepared. Adaptic was put into the wound the dressing was then secured surrounding the Achilles wound fully covering the wound, the dressing was then secured using Tegaderm around the dressing. The port tubing was connected to the pump tubing. The machine was then started to deliver negative-pressure wound therapy. The surgical site was then dressed with gauze and Kerlix. Posterior splint was then used to keep the foot in a neutral position securing it all with SELVIN bandage. POSTOPERATIVE CONDITION: The patient tolerated the anesthesia and procedure well and was escorted to the recovery room with vital signs stable and neurovascular status intact to the left leg. The patient is to remain nonweightbearing to the left lower extremity using a wheelchair. The patient will follow up with Dr. Mcconnell up on discharge. Adriana Dunham Haseeb Mcconnell DPM
== END 2018-05-05 17:25 | disposition home or self-care (01) ==
LOC: H.OPSURG 10:34
PROVIDERS: ATTEND Podiatrist
DX: T81.32XA Disruption of internal operation (surgical) wound, not elsewhere classified, initial encounter (principal); S86.012A Strain of left Achilles tendon, initial encounter; I10 Essential (primary) hypertension; J45.909 Unspecified asthma, uncomplicated
CPT/HCPCS: 11043; 36415; 80048; 85025; 85610; 85730; 87070; J0690; J1100; J2001; J2405; J2704; J2765; J3010; J7030; J7120

== ENCOUNTER 2018-07-24 10:21 | Day surgery (SDC) | payer MEDICARE ==
[2018-05-01 09:42] VITALS: BMI 42.5
[2018-07-24] MEDS ORDERED: Lidocaine 1% Inj (20ml) IJ ONE (11:12)
[2018-07-24] MEDS ORDERED: Bupivacaine 0.5% Inj(30mL) IJ ONE (11:12)
[2018-07-24] MEDS ORDERED: ceFAZolin IV 1 gm in Dextrose 1 GM/50 ML BAG IVPB ONE (11:12)
--- NOTE | 2018-07-24 11:14 | CP.SDSHP ---
Same Day Surgery H & P - History Proposed Procedure: Left foot wound debridement and application of graft Pre-Op Diagnosis: Left foot non-healing wound - Previous Medical/Surgical History Cardiac: Hypertension Pain: 2.Mild Pain - Allergies Allergies: Allergies doxycycline [From Vibramycin] Allergy (Verified 05/05/18 12:31) RASH losartan Allergy (Verified 07/23/18 09:38) DIZZINESS - Physical Exam Neuro: WNL - {Optional Preform as Required} Integument: WNL - Impression Pt. Evaluated Today:Candidate for Anesthesia & Procedure: Yes - Date & Time Date: 07/24/18 Time: 11:26 Short Stay Discharge - Short Stay Discharge Admitting Diagnosis/Reason for Visit: L97.223, T81.32XD Disposition: HOME/ ROUTINE Referrals: Taran Atwood MD, PhD [Primary Care Provider] - Additional Instructions (Diet, Activity): -Patient in good/stable condition for discharge home -Pt to resume medications per medical reconciliation -Resume regular diet -Please keep dressing clean, dry, & intact to surgical site -Use plastic bag over bandage for showering -Wear post op shoe at all times when ambulating -Call clinic if you see signs of infection (redness, swelling, malodor) -Please make an appointment to see Dr. Mcconnell in office/clinic within 1 week for post-op check Progress Note/Discharge Note with Instructions: - Patient evaluated bedside in recovery - After surgical procedure patient in NAD - (+) Void, (+) Appetite - Capillary refill time <3s and NVS intact. - Patient denies complaints at this time. - Post operative instructions and plan of care explained to patient at length. - Patient. acknowledges verbal understanding. - Patient stable for DC per podiatric surgery
--- NOTE | 2018-07-24 11:14 | CP.PCM.PN ---
Subjective - Date & Time of Evaluation Date of Evaluation: 07/24/18 Time of Evaluation: 11:14 - Subjective Subjective: Podiatry Progress note for Dr. Mcconnell 78 y/o female patient seen and evaluated for left achilles repair surgery. Patient states she fell in March and had surgery on March 11. patient states her wound has not healed since. Patient has had multiple wound debridement procedures. She is in mild pain today and has been taking tylenol as needed for the pain. Her last meal was at 8 pm last night and she denies drinking or eating anything since that time. She has had surgeries in the past and denies any reactions to anesthesia. Denies N/F/V/SOB/CP. PMHx: HTN Social: Denies tobacco use All: NKDA Objective - Vital Signs/Intake and Output Vital Signs (last 24 hours): Temp Pulse Resp BP Pulse Ox 98 F 46 L 20 151/62 H 97 07/23/18 10:08 07/23/18 10:08 07/23/18 10:08 07/23/18 10:08 07/23/18 10:08 - Medications Medications: Current Medications Bupivacaine HCl (Marcaine 0.5%) 20 ml IJ ONCE ONE Stop: 07/24/18 11:13 Cefazolin Sodium 1 gm/ Sodium (Chloride) 100 mls @ 100 mls/hr IVPB ONCE ONE; Protocol Stop: 07/24/18 12:11 - Constitutional Appears: Well, Non-toxic, No Acute Distress - Head Exam Head Exam: ATRAUMATIC, NORMOCEPHALIC - Extremities Exam Additional comments: LLE focused exam: Vascular: DP/PT 2/4, CFT <3 seconds, mild edema to left ankle, TG WNL Ortho: Tenderness on palpation of calf, pain upon palpation of achilles tendon, MMT 4/5 due to patient guarding. Palpable gap to left achilles tendon. Neuro: Gross and protective sensation intact Derm: 5 cm x 2 cm wound to the posterior aspect of the heel, with purulent drainage, granular base, no malodor, no erythema, no probe to bone - Neurological Exam Neurological Exam: Alert, Awake, Oriented x3 - Psychiatric Exam Psychiatric exam: Normal Affect, Normal Mood Assessment and Plan - Assessment and Plan (Free Text) Assessment: 78 y/o female patient seen and evaluated at bedside in [facility] for left foot wound debridement and application of graft Plan: Pt was seen and examined in SDS Pt NPO status was confirmed All pre-op testing and clearance in chart Pt has exhausted all conservative treatment at this time and is opting for surgical intervention Pt was explained procedure and post-operative course All pt's questions were answered to satisfaction No guarantees were made Pt understands all risks, benefits and complications of procedure Pt will follow-up with Dr. Mcconnell within 1 week of surgery
[2018-07-24] MEDS ORDERED: Sodium Chloride 0.9% 1,000 ML IV SCH (11:15)
[2018-07-24] MEDS ORDERED: Propofol 10 mg/ml Inj (20 ML) ONE (11:59)
[2018-07-24] MEDS ORDERED: Midazolam 2 MG/2 ML VIAL ONE (11:59)
[2018-07-24 12:04] VITALS: RESP 18
[2018-07-24] MEDS ORDERED: ceFAZolin IV 1 gm in Dextrose 2 GM/100 ML BAG IVPB ONE (12:17)
[2018-07-24] MEDS ORDERED: Lidocaine 1% Inj (20ml) ONE (12:17)
[2018-07-24] MEDS ORDERED: Bupivacaine 0.25%-Epinephrine 1:200,000 (30 ml) Inj ONE (12:18)
[2018-07-24] MEDS ORDERED: Lidocaine 2% Inj (20ml) ONE (12:51)
[2018-07-24] MEDS ORDERED: Lactated Ringer's 1,000 ML IV ONE (13:00)
[2018-07-24] MEDS ORDERED: Ketamine 50 mg/ml Inj (10 ml) ONE (13:19)
[2018-07-24] MEDS ORDERED: Sodium Chloride 0.9% 10 ML IV ONE (13:20)
[2018-07-24] MEDS ORDERED: Mineral Oil Light Sterile 25 ml ONE (13:27)
[2018-07-24] MEDS ORDERED: Oxycodone/Acetaminophen 5/325 mg Tab PO PRN ×2 (14:04)
--- NOTE | 2018-07-24 14:04 | PCM.SURG1 ---
Surgeon's Initial Post Op Note - Surgeon's Notes Surgeon: Dr. Mcconnell, DPM Surveillance Inspector: Dr. mic Hernandez, PGY1 Type of Anesthesia: IV Sedation, Local Anesthesia Administered By: Dr. Sampson Pre-Operative Diagnosis: right posterior leg wound Operative Findings: see dictation. I: 20 cc 1% Lidocaine plain. M: 4-0 Vicryl, 3-0 Prolene, Integra Bilayer Wound matrix Post-Operative Diagnosis: same Operation Performed: Right Leg wound debridement with versajet and application of skin substitute Specimen/Specimens Removed: none Estimated Blood Loss: EBL {In ML}: 1 Blood Products Given: N/A Drains Used: No Drains Post-Op Condition: Good Date of Surgery/Procedure: 07/24/18 Time of Surgery/Procedure: 14:04
[2018-07-24 17:19] VITALS: BP 147/42; PULSE 46; TEMP 97.3; O2SAT 98
--- NOTE | 2018-07-30 07:38 | OP ---
PROCEDURE DATE: 07/24/2018 PREOPERATIVE DIAGNOSIS: Left Achilles tendon nonhealing wound. POSTOPERATIVE DIAGNOSIS: Left Achilles tendon nonhealing wound. PROCEDURES: 1. Left Achilles tendon wound debridement. 2. Left Achilles tendon wound application graft. SURGEON: Haseeb Mcconnell DPM REGISTRATION REP: Nirmal Hernandez, PGY-1 ANESTHESIA: IV sedation with local anesthesia. ANESTHESIOLOGIST: Dr. Sampson. INDICATION: The patient is a 78-year-old female with the above diagnosis. The patient has exhausted all conservative treatment at this time and now requests surgical intervention. The patient signed the consent after careful explanation of risks, benefits, complications and alternatives for the surgical procedure. No guarantees were given nor implied. NPO status was confirmed prior to taking the patient to the OR. PREPARATION: The patient was brought into the operating room and placed on the operating room table in a prone position. Time-out was performed for identification of the correct patient and procedure. The patient received a total of 20 mL of 1% lidocaine plain in a circumferential fashion to the wound. The left lower extremity was then prepped and draped in a normal sterile manner and the procedure began. No tourniquet was used during the procedure. DESCRIPTION OF PROCEDURE: PROCEDURE #1: Attention was then drawn to the posterior aspect of the left distal leg with ulceration measuring approximately 5 cm x 2 cm. Using Versajet on power 4, the base of the ulceration was non-excisionally debrided of all fibrotic and nonviable tissue until fresh bleeding granular tissue appeared at the surgical site. The ulcer was then irrigated with copious amounts of normal saline. A 4-0 Vicryl suture was utilized to secure granular tissue of the wound base at the distal most aspect. PROCEDURE #2: At this time, the meshed Integra bilayer graft was then measured to the size of the wound. Graft was secured to the wound with the use of 3-0 Prolene sutures circumferentially along the edges of the wound. The wound was then dressed with Adaptic, mineral oil, gauze, Kerlix and Vipin. POSTOPERATIVE CONDITION: The patient tolerated the local anesthesia and procedure well and was escorted to the recovery room with neurovascular status intact to the left foot and vital signs stable. The patient to wear a posterior splint type boot at this time. The patient will follow up with Dr. Mcconnell in his office. NIRMAL DANIEL Haseeb YARA Mcconnell [facility] # [id number] LINDY
== END 2018-07-24 20:05 | disposition home or self-care (01) ==
LOC: H.OPSURG 10:21
PROVIDERS: ATTEND Podiatrist
DX: L97.223 Non-pressure chronic ulcer of left calf with necrosis of muscle (principal); T81.32XD Disruption of internal operation (surgical) wound, not elsewhere classified, subsequent encounter; J45.909 Unspecified asthma, uncomplicated; G47.33 Obstructive sleep apnea (adult) (pediatric); I10 Essential (primary) hypertension
CPT/HCPCS: 15002; 15271; J0690; J2001; J2250; J2270; J2704; J3010; J7030; J7120; Q4104

== ENCOUNTER 2018-09-08 12:40 | Inpatient (IN) | payer MEDICARE ==
[2018-09-08 12:40] VITALS: BMI 42.5
--- NOTE | 2018-09-08 13:39 | ED PDOC ---
HPI: General Adult Time Seen by Provider: 09/08/18 13:04 Chief Complaint (Nursing): Lower Extremity Problem/Injury Chief Complaint (Provider): osteomyelitis History Per: Patient (78 y/o female sent by Dr. Mcconnell for admission for osteomyelitis noted from bony particles when reapplying skin graft by plastics Dr. Montalvo 09/04/2018. No fevers/chills. Has had original achilles tendon rupture sx 03/2018 and then subsequent debridement of wound 05/2018 with skin graft 07/2018. ) Past Medical History Reviewed: Historical Data, Nursing Documentation, Vital Signs Vital Signs: Last Vital Signs Temp 98 F 09/08/18 12:47 Pulse 53 L 09/08/18 12:47 Resp 16 09/08/18 12:47 BP 164/62 H 09/08/18 12:47 Pulse Ox 96 09/08/18 12:47 - Medical History PMH: Arthritis (general/hands), Bronchitis, HTN, Sleep Apnea (w/ c-pap) Denies: Chronic Kidney Disease - Surgical History Surgical History: Cholecystectomy - Family History Family History: States: No Known Family Hx - Home Medications Home Medications: Ambulatory Orders Medication Instructions Recorded Aspirin [Ecotrin] 81 mg PO HS 03/09/18 Celecoxib [Celebrex] 200 mg PO DAILY 03/09/18 Levocetirizine Dihydrochloride 5 mg PO DAILY 03/09/18 [Xyzal] Montelukast Sodium [Singulair] 10 mg PO HS 03/09/18 hydroCHLOROthiazide [Microzide] 12.5 mg PO Q48H 03/09/18 Nebivolol [Bystolic] 20 mg PO HS 07/24/18 Amoxicillin/Clavulanate [Augmentin 1 tab PO Q12 09/08/18 875 MG-125 MG Tab] Ascorbate Calcium/Bioflavonoid 1 tab PO DAILY 09/08/18 [Dariana-C 500 mg Tablet] Calcium Carb/Mag Oxide/Zinc Ox 1 tab PO DAILY 09/08/18 [Jddzenc-Xseqajudf-Huvx Caplet] Cartilage/Collagen/Bor/Hyalur 1 tab PO DAILY 09/08/18 [Move Free Ultra Tablet] Cholecalciferol [Vitamin D 1000 IU] 1,000 unit PO DAILY 09/08/18 Multivit-Min/FA/Lycopen/Lutein 1 tab PO DAILY 09/08/18 [Centrum Silver Tablet] Vit A/Vit C/Vit E/Zinc/Copper 1 cap PO BID 09/08/18 [Preservision Areds Softgel] Vitamin B Complex [Super B-50 1 cap PO DAILY 09/08/18 Complex] traMADol [Ultram] 50 mg PO Q6 PRN 09/08/18 - Allergies Allergies/Adverse Reactions: Allergies Allergy/AdvReac Type Severity Reaction Status Date / Time doxycycline [From Vibramycin] Allergy RASH Verified 05/05/18 12:31 losartan Allergy DIZZINESS Verified 07/23/18 09:38 Review of Systems ROS Statement: Except As Marked, All Systems Reviewed And Found Negative Physical Exam - Reviewed Nursing Documentation Reviewed: Yes Vital Signs Reviewed: Yes - Physical Exam Appears: Positive for: Well, Non-toxic, No Acute Distress Head Exam: Positive for: ATRAUMATIC, NORMAL INSPECTION, NORMOCEPHALIC Skin: Positive for: Normal Color, Warm, DRY Eye Exam: Positive for: EOMI, Normal appearance, PERRL ENT: Positive for: Normal ENT Inspection Neck: Positive for: Normal, Painless ROM Cardiovascular/Chest: Positive for: Regular Rate, Rhythm Respiratory: Positive for: CNT, Normal Breath Sounds Gastrointestinal/Abdominal: Positive for: Normal Exam, Soft Back: Positive for: Normal Inspection Extremity: Positive for: Normal ROM Neurologic/Psych: Positive for: Alert, Oriented - Laboratory Results Result Diagrams: 09/08/18 13:34 09/08/18 13:34 - ECG O2 Sat by Pulse Oximetry: 96 - Progress ED Course And Treament: d/w podiatry resident Zosyn 3.375gm iv vancomycin 1gm iv ordered. Podiatry resident has reviewed wound C&S and patient needs unasyn for treatment of Actinobacter resistant to zosyn. Dr. Kang is aware. Disposition - Clinical Impression Clinical Impression: Osteomyelitis - Patient ED Disposition Is Patient to be Admitted: Yes - Disposition Disposition Time: 14:26 Condition: FAIR - Pt Status Changed To: Hospital Disposition Of: Inpatient - Admit Certification Admit to Inpatient:: After my assessment, the patient will require hospitalization for at least two midnights. This is because of the severity of symptoms shown, intensity of services needed, and/or the medical risk in this patient being treated as an outpatient.
--- NOTE | 2018-09-08 13:54 | RAD ---
Date of service: 09/08/2018 HISTORY: routine COMPARISON: No prior. FINDINGS: LUNGS: No active pulmonary disease. PLEURA: No significant pleural effusion identified, no pneumothorax apparent. CARDIOVASCULAR: Calcific atherosclerotic changes are seen related to the thoracic aorta. Prominent appearing cardiac silhouette. No pulmonary vascular congestion. OSSEOUS STRUCTURES: No significant abnormalities. VISUALIZED UPPER ABDOMEN: Normal. OTHER FINDINGS: None. IMPRESSION: No consolidation bilaterally. Potential cardiomegaly. No pulmonary vascular congestion.
[2018-09-08] MEDS ORDERED: Piperacillin/Tazobact 3.375 GM in Sodium Chloride 0.9% 100 ML IVPB STA (13:56)
[2018-09-08] MEDS ORDERED: Piperacillin/Tazobact 3.375 gm Inj IVPB ONE (14:06)
[2018-09-08 14:07] LABS: VENOUS BLOOD GAS BASE EXCESS 1.2 mmol/L (0.0-2.0); VENOUS BLOOD GAS PCO2 41 mmHg (40-60); VENOUS BLOOD GAS PO2 61 mm/Hg (30-55); VENOUS BLOOD PH 7.41 (7.32-7.43)
[2018-09-08] MEDS ORDERED: Vancomycin 1 g Inj ONE (14:07)
[2018-09-08 14:12] LABS: BASO # 0.1 K/uL (0.0-0.2); BASO % 0.6 % (0.0-2.0); EOS # 0.2 K/uL (0.0-0.7); HEMOGLOBIN 13.5 g/dL (12.0-16.0); LYMPH # 1.9 K/uL (1.0-4.3); LYMPH % 20.2 % (20.0-40.0); MEAN CELL VOLUME 85.4 fl (81.0-99.0); MEAN CORPUSCULAR HEMOGLOBIN 28.4 pg (27.0-31.0); MEAN CORPUSCULAR HGB CONC 33.3 g/dL (33.0-37.0); MONO # 0.9 K/uL (0.0-0.8); MONO % 9.7 % (0.0-10.0); NEUT # 6.4 K/uL (1.8-7.0); NEUT % 67.5 % (50.0-75.0); NRBC % 0.2 % (0.0-0.0); RBC 4.75 Mil/uL (3.80-5.20); RED CELL DISTRIBUTION WIDTH 13.1 % (11.5-14.5); WHITE BLOOD COUNT 9.5 K/uL (4.8-10.8)
[2018-09-08 14:24] LABS: ALB/GLOB RATIO 1.2 (1.0-2.1); ALT/SGPT 20 U/L (9-52); AST/SGOT 21 U/L (14-36); BLOOD UREA NITROGEN 19 mg/dl (7-17); CALCIUM 9.6 mg/dL (8.4-10.2); GFR NON-AFRICAN AMERICAN > 60
--- NOTE | 2018-09-08 15:18 | CP.PCM.CON ---
History of Present Illness - History of Present Illness History of Present Illness: Podiatry consult note for Dr. Mcconnell, 78 y/o female patient seen and evaluated in the ED for left achilles wound. Patient states she fell in March and had surgery on March 11. Patient states her wound has not healed since. Patient has had multiple wound debridement procedures. She is in mild pain today and has been taking tylenol as needed for the pain. 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 Denies N/F/V/SOB/CP. PMHx: HTN Social: Denies tobacco use All: NKDA Past Patient History - Past Medical History & Family History Past Medical History?: Yes - Past Social History Smoking Status: Never Smoked - CARDIAC Hx Hypertension: Yes - PULMONARY Hx Bronchitis: Yes Hx Sleep Apnea: Yes (w/ c-pap) - NEUROLOGICAL Hx Neurological Disorder: No - HEENT Hx HEENT Problems: Yes Hx Cataracts: Yes (mild) Hx Macular Degeneration: Yes (mild) - RENAL Hx Chronic Kidney Disease: No - ENDOCRINE/METABOLIC Hx Endocrine Disorders: No - HEMATOLOGICAL/ONCOLOGICAL Hx Blood Disorders: No Hx Blood Transfusions: No - INTEGUMENTARY Hx Dermatological Problems: No - MUSCULOSKELETAL/RHEUMATOLOGICAL Hx Arthritis: Yes (general/hands) - GASTROINTESTINAL Hx Gastrointestinal Disorders: No - GENITOURINARY/GYNECOLOGICAL Hx Genitourinary Disorders: No Hx Incontinence: Yes - PSYCHIATRIC Hx Emotional Abuse: No Hx Physical Abuse: No Hx Substance Use: No - SURGICAL HISTORY Hx Cholecystectomy: Yes - ANESTHESIA Hx Anesthesia: Yes Hx Anesthesia Reactions: No Hx Malignant Hyperthermia: No Meds Allergies/Adverse Reactions: Allergies Allergy/AdvReac Type Severity Reaction Status Date / Time doxycycline [From Vibramycin] Allergy RASH Verified 05/05/18 12:31 losartan Allergy DIZZINESS Verified 07/23/18 09:38 - Medications Medications: Current Medications Vancomycin HCl 1 gm/ Sodium (Chloride) 250 mls @ 166.667 mls/hr IVPB STAT STA; Protocol Stop: 09/08/18 15:25 Physical Exam - Constitutional Appears: Well, Non-toxic, No Acute Distress - Head Exam Head Exam: ATRAUMATIC, NORMOCEPHALIC - ENT Exam ENT Exam: Mucous Membranes Moist - Extremities Exam Additional comments: LLE focused exam: Vascular: DP/PT 2/4, CFT <3 seconds, mild edema to left ankle, TG WNL Ortho: Tenderness on palpation of calf secondary to open wound, pain upon palpation of achilles tendon, MMT 4/5 due to patient guarding. Palpable gap to left achilles tendon. Neuro: Gross and protective sensation intact Derm: 5 cm x 2 cm wound to the posterior aspect of the heel, with no active drai nage, granular base, no malodor, no erythema, no probe to bone, no tracking or tunneling noted. Results - Vital Signs Recent Vital Signs: Last Vital Signs Temp 98 F 09/08/18 12:47 Pulse 53 L 09/08/18 12:47 Resp 16 09/08/18 12:47 BP 164/62 H 09/08/18 12:47 Pulse Ox 96 09/08/18 13:39 - Labs Result Diagrams: 09/08/18 13:34 09/08/18 13:34 Labs: Laboratory Results - last 24 hr 09/08/18 09/08/18 09/08/18 13:34 13:34 14:04 WBC 9.5 RBC 4.75 Hgb 13.5 Hct 40.5 MCV 85.4 D MCH 28.4 MCHC 33.3 RDW 13.1 Plt Count 254 MPV 8.0 Neut % (Auto) 67.5 Lymph % (Auto) 20.2 [place] % (Auto) 9.7 Eos % (Auto) 2.0 Baso % (Auto) 0.6 Neut # (Auto) 6.4 Lymph # (Auto) 1.9 [place] # (Auto) 0.9 H Eos # (Auto) 0.2 Baso # (Auto) 0.1 pO2 61 H VBG pH 7.41 VBG pCO2 41 VBG HCO3 25.7 VBG Total CO2 27.3 VBG O2 Sat (Calc) 96.3 H VBG Base Excess 1.2 VBG Potassium 4.3 Glucose 91 Lactate 1.2 FiO2 21.0 Sodium 140 137.0 Potassium 4.1 Chloride 103 108.0 H Carbon Dioxide 23 Anion Gap 18 BUN 19 H Creatinine 0.7 Est GFR ( Amer) > 60 Est GFR (Non-Af Amer) > 60 Random Glucose 89 Calcium 9.6 Total Bilirubin 0.4 AST 21 ALT 20 Alkaline Phosphatase 59 Total Protein 7.3 Albumin 4.0 Globulin 3.3 Albumin/Globulin Ratio 1.2 Venous Blood Potassium 4.3 Assessment & Plan - Assessment and Plan (Free Text) Assessment: 78 yo female seen and evaluated for left achilles wound with possible osteomyelitis Plan: Patient seen and evaluated Chart, labs and vitals reviewed. X-rays ordered Left heel dressed with telfa, allevyn and SELVIN ID consult ordered; recommendations appreciated Foot/ankle MRI with/without contrast ordered to rule out osteomyelitis Unasyn STAT ordered Patient will be admitted until Dr. Kang Podiatry will continue to follow the patient; thank you for the consult
--- NOTE | 2018-09-08 16:16 | RAD ---
Date of service: 09/08/2018 PROCEDURE: Radiographs of the left tibia and fibula. HISTORY: r/o osteomyelitis COMPARISON: None available. TECHNIQUE: Frontal and lateral views obtained. FINDINGS: BONES: Patient status post total knee replacement with hardware in good apparent position without evidence to suggest hardware failure. Diffuse soft tissue edema seen the subcutaneous fat throughout the left leg. No emphysema soft tissue changes or retained radiodense foreign body identified. Calcifications are identified within the pretibial as well as medial distal leg soft tissues may reflect chronic inflammation. Consider dermal pathological disorder as well including autoimmune processes. JOINT SPACES: Left ankle appears unremarkable. Left knee as discussed above. OTHER FINDINGS: None. IMPRESSION: No acute fracture or dislocation or evidence to suggest hardware failure, status post left total knee replacement. No gross osteomyelitis pattern. Soft tissue edema is diffuse with associated calcification anteriorly and distal medially. Consider possible skin disorder including autoimmune processes.
--- NOTE | 2018-09-08 17:40 | CP.PCM.HP ---
History of Present Illness - History of Present Illness History of Present Illness: CC: 78 y/o female patient seen and evaluated in the ED for left Achilles Infected Wound with MDR Acinatobacter from he wound Sensitive to Unasyn as per the Culture from the [place] Surgeon . Patient states she fell in March and had morocho rgery on March 11. Patient states her wound has not healed since. Patient has had multiple wound debridement procedures. She is in mild pain today and has been taking tylenol as needed for the pain. 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 Denies N/F/V/SOB/CP. Present on Admission - Present on Admission Any Indicators Present on Admission: No Review of Systems - Review of Systems All systems: reviewed and no additional remarkable complaints except Review of Systems: as per HPI Past Patient History - Past Medical History & Family History Past Medical History?: Yes Past Family History: Reviewed and not pertinent - Past Social History Smoking Status: Never Smoked Alcohol: Social Drugs: Denies - CARDIAC Hx Hypertension: Yes - PULMONARY Hx Bronchitis: Yes Hx Sleep Apnea: Yes (w/ c-pap) - NEUROLOGICAL Hx Neurological Disorder: No - HEENT Hx HEENT Problems: Yes Hx Cataracts: Yes (mild) Hx Macular Degeneration: Yes (mild) - RENAL Hx Chronic Kidney Disease: No - ENDOCRINE/METABOLIC Hx Endocrine Disorders: No - HEMATOLOGICAL/ONCOLOGICAL Hx Blood Disorders: No Hx Blood Transfusions: No - INTEGUMENTARY Hx Dermatological Problems: No - MUSCULOSKELETAL/RHEUMATOLOGICAL Hx Arthritis: Yes (general/hands) - GASTROINTESTINAL Hx Gastrointestinal Disorders: No - GENITOURINARY/GYNECOLOGICAL Hx Genitourinary Disorders: No Hx Incontinence: Yes - PSYCHIATRIC Hx Emotional Abuse: No Hx Physical Abuse: No Hx Substance Use: No - SURGICAL HISTORY Hx Cholecystectomy: Yes - ANESTHESIA Hx Anesthesia: Yes Hx Anesthesia Reactions: No Hx Malignant Hyperthermia: No Meds Home Medications: Home Medication List Medication Instructions Recorded Confirmed Type AMPicillin/Sulbactam [Unasyn 3 gm] 3 gm IVPB Q6 #168 vial 09/11/18 Rx Enoxaparin [Lovenox] 50 mg SC DAILY syr 09/11/18 Rx Telavancin Hydrochloride [Vibativ] 1,000 mg IV DAILY #42 pds 09/11/18 Rx Allergies/Adverse Reactions: Allergies Allergy/AdvReac Type Severity Reaction Status Date / Time doxycycline [From Vibramycin] Allergy RASH Verified 05/05/18 12:31 losartan Allergy DIZZINESS Verified 07/23/18 09:38 Physical Exam - Constitutional Appears: Well, No Acute Distress - Head Exam Head Exam: ATRAUMATIC, NORMAL INSPECTION, NORMOCEPHALIC - Eye Exam Eye Exam: EOMI, Normal appearance, PERRL Pupil Exam: NORMAL ACCOMODATION, PERRL - ENT Exam ENT Exam: Mucous Membranes Moist, Normal Exam - Neck Exam Neck exam: Positive for: Normal Inspection - Respiratory Exam Respiratory Exam: Clear to Auscultation Bilateral, NORMAL BREATHING PATTERN - Cardiovascular Exam Cardiovascular Exam: REGULAR RHYTHM, +S1, +S2 - GI/Abdominal Exam GI & Abdominal Exam: Normal Bowel Sounds, Soft. absent: Tenderness - Extremities Exam Additional comments: Left Achilles Area Infected Wound dressed with Clean dressing. - Back Exam Back exam: NORMAL INSPECTION - Neurological Exam Neurological exam: Alert, CN II-XII Intact, Normal Gait, Oriented x3, Reflexes Normal - Psychiatric Exam Psychiatric exam: Normal Affect, Normal Mood - Skin Skin Exam: Dry, Intact, Normal Color, Warm Results - Vital Signs Recent Vital Signs: Last Vital Signs Temp 97.7 F 09/08/18 17:36 Pulse 120 H 09/08/18 17:36 Resp 20 09/08/18 17:36 BP 111/65 09/08/18 17:36 Pulse Ox 98 09/08/18 17:36 - Labs Result Diagrams: 09/12/18 04:30 09/12/18 04:30 Labs: Laboratory Results - last 24 hr 09/08/18 09/08/18 09/08/18 13:34 13:34 14:04 WBC 9.5 RBC 4.75 Hgb 13.5 Hct 40.5 MCV 85.4 D MCH 28.4 MCHC 33.3 RDW 13.1 Plt Count 254 MPV 8.0 Neut % (Auto) 67.5 Lymph % (Auto) 20.2 [place] % (Auto) 9.7 Eos % (Auto) 2.0 Baso % (Auto) 0.6 Neut # (Auto) 6.4 Lymph # (Auto) 1.9 [place] # (Auto) 0.9 H Eos # (Auto) 0.2 Baso # (Auto) 0.1 pO2 61 H VBG pH 7.41 VBG pCO2 41 VBG HCO3 25.7 VBG Total CO2 27.3 VBG O2 Sat (Calc) 96.3 H VBG Base Excess 1.2 VBG Potassium 4.3 Glucose 91 Lactate 1.2 FiO2 21.0 Sodium 140 137.0 Potassium 4.1 Chloride 103 108.0 H Carbon Dioxide 23 Anion Gap 18 BUN 19 H Creatinine 0.7 Est GFR ( Amer) > 60 Est GFR (Non-Af Amer) > 60 Random Glucose 89 Calcium 9.6 Total Bilirubin 0.4 AST 21 ALT 20 Alkaline Phosphatase 59 Total Protein 7.3 Albumin 4.0 Globulin 3.3 Albumin/Globulin Ratio 1.2 Venous Blood Potassium 4.3 - Impressions Impression: Sinus Bradycardia @44/min. - Imaging and Cardiology Chest x-ray Status: Report reviewed by me Additional comment: Date of service: 09/08/2018 HISTORY: routine COMPARISON: No prior. FINDINGS: LUNGS: No active pulmonary disease. PLEURA: No significant pleural effusion identified, no pneumothorax apparent. CARDIOVASCULAR: Calcific atherosclerotic changes are seen related to the thoracic aorta. Prominent appearing cardiac silhouette. No pulmonary vascular congestion. OSSEOUS STRUCTURES: No significant abnormalities. VISUALIZED UPPER ABDOMEN: Normal. OTHER FINDINGS: None. IMPRESSION: No consolidation bilaterally. Potential cardiomegaly. No pulmonary vascular congestion. Assessment & Plan (1) Osteomyelitis Status: Acute Priority: High (2) Rupture of left Achilles tendon Status: Acute Priority: High (3) CAD (coronary artery disease) Status: Acute Priority: Low (4) Mild intermittent asthma Status: Acute Priority: Low (5) Hypertension Status: Chronic Priority: Low - Assessment and Plan (Free Text) Plan: IVF IV Vancomycin and Unasyn IV Pain medication PRN ID & [employer] Tylenol PRN
[2018-09-08] MEDS ORDERED: Gadodiamide 287 MG/ML VIAL (15ML) IV ONE (18:29)
--- NOTE | 2018-09-08 20:24 | CARD ---
APPROVED REPORT Date of service: 09/08/2018 EKG Measurement Heart [id number] <Conclusion> Marked sinus bradycardia with 1st degree AV block Voltage criteria for left ventricular hypertrophy Abnormal ECG
[2018-09-09] MEDS ORDERED: Influenza Vaccine (5 YR UP)/PF 60 MCG/0.5 ML SYR IM ONE (05:28)
[2018-09-09] MEDS ORDERED: Influenza Vaccine 60 mcg/0.5 mL SYR (4YR UP) IM ONE (05:45)
[2018-09-09] MEDS ORDERED: Pneumococcal 23-Valent Vaccine IM ONE (06:00)
[2018-09-09] MEDS ORDERED: Patient's Own Med (Vitamin B Complex [Super B-50 Complex] 1 CAP) PO SCH (09:00)
[2018-09-09] MEDS ORDERED: ZINC OX PO SCH (09:00)
[2018-09-09] MEDS ORDERED: CALCIUM CARB PO SCH (09:00)
[2018-09-09] MEDS ORDERED: ASCORBATE CALCIUM PO SCH (09:00)
[2018-09-09] MEDS ORDERED: [UNRECOGNIZED DRUG - OTHER] PO SCH (09:00)
[2018-09-09] MEDS ORDERED: Enoxaparin 40 mg Syringe SC SCH (09:00)
[2018-09-09] MEDS ORDERED: MAG OXIDE PO SCH (09:00)
[2018-09-09] MEDS ORDERED: BIOFLAVONOID PO SCH (09:00)
[2018-09-09] MEDS: Multivitamin With Minerals Tab PO SCH (09:08)
[2018-09-09] MEDS: Cholecalciferol 1,000 INTLU TAB PO SCH (09:09)
--- NOTE | 2018-09-09 09:51 | CP.PCM.PN ---
Subjective - Date & Time of Evaluation Date of Evaluation: 09/09/18 Time of Evaluation: 09:49 - Subjective Subjective: Podiatry progress note for Dr. Mcconnell, 78 y/o female patient seen and evaluated at bedside for left achilles wound. Patient is AAOx3 and in NAD. Patient states she is in no discomfort right now. Patient denies any acute pedal complains. Denies N/F/V/SOB/CP. Objective - Vital Signs/Intake and Output Vital Signs (last 24 hours): Temp Pulse Resp BP Pulse Ox 97.3 F L 51 L 18 157/53 H 95 09/09/18 08:00 09/09/18 08:00 09/09/18 08:00 09/09/18 08:00 09/09/18 08:00 - Medications Medications: Current Medications Aspirin (Ecotrin) 81 mg PO HS [facility] Last Admin: 09/08/18 22:01 Dose: 81 mg Celecoxib (Celebrex) 200 mg PO DAILY [facility] Last Admin: 09/09/18 09:08 Dose: 200 mg Cholecalciferol (Vitamin D) 1,000 intlu PO DAILY [facility] Last Admin: 09/09/18 09:09 Dose: 1,000 intlu Enoxaparin Sodium (Lovenox) 40 mg SC DAILY [facility]; Protocol Home Med (Ascorbate Calcium/Bioflavonoid [Dariana-C 500 Mg Tablet]) 1 tab PO DAILY [facility] Home Med (Calcium Carb/Mag Oxide/Zinc Ox [Ytthmgr-Xligarqfc-Ktgg Caplet]) 1 tab PO DAILY [facility] Home Med (Vitamin B Complex [Super B-50 Complex]) 1 cap PO DAILY [facility] Hydrochlorothiazide (Microzide) 12.5 mg PO Q48H [facility] Last Admin: 09/08/18 21:25 Dose: Not Given Ampicillin Sodium/Sulbactam (Sodium 3 gm/ Sodium Chloride) 100 mls @ 100 mls/hr IVPB Q6 [facility]; Protocol Last Admin: 09/09/18 09:12 Dose: 100 mls/hr Vancomycin HCl 1 gm/ Sodium (Chloride) 250 mls @ 250 mls/hr IVPB Q12H [facility]; Protocol Last Admin: 09/09/18 09:11 Dose: 250 mls/hr Loratadine (Claritin) 10 mg PO DAILY [facility] Last Admin: 09/09/18 09:08 Dose: 10 mg Metoprolol Tartrate (Lopressor) 100 mg PO BID [facility] Last Admin: 09/09/18 09:13 Dose: Not Given Montelukast Sodium (Singulair) 10 mg PO HS [facility] Last Admin: 09/08/18 22:01 Dose: 10 mg Multivitamins/Minerals (Therapeutic-M Tab) 1 tab PO DAILY [facility] Last Admin: 09/09/18 09:08 Dose: 1 tab Tramadol HCl (Ultram) 50 mg PO Q6 PRN PRN Reason: Pain, severe (8-10) Last Admin: 09/08/18 21:10 Dose: 50 mg - Labs Labs: 09/08/18 13:34 09/08/18 13:34 - Constitutional Appears: Well, Non-toxic, No Acute Distress - Head Exam Head Exam: ATRAUMATIC - Eye Exam Eye Exam: Normal appearance Pupil Exam: NORMAL ACCOMODATION - Extremities Exam Additional comments: LLE focused exam: Vascular: DP/PT 2/4, CFT <3 seconds, mild edema to left ankle, TG WNL Ortho: Tenderness on palpation of calf secondary to open wound, pain upon palpation of achilles tendon, MMT 4/5 due to patient guarding. Palpable gap to left achilles tendon. Neuro: Gross and protective sensation intact Derm: 5 cm x 2 cm wound to the posterior aspect of the heel, with no active drainage, granular base, no malodor, no erythema, no probe to bone, no tracking or tunneling noted. - Neurological Exam Neurological Exam: Alert, Awake, Oriented x3 Assessment and Plan - Assessment and Plan (Free Text) Assessment: 78 yo female seen and evaluated for left achilles wound with possible osteomyelitis Plan: Patient seen and evaluated Chart, labs and vitals reviewed. Left heel dressed with telfa, allevyn and SELVIN ID consult ordered; recommendations appreciated Foot/ankle MRI with/without contrast ordered to rule out osteomyelitis: osteomyelitis of the calcaneus Continue IV antibiotics Podiatry will continue to follow the patient
--- NOTE | 2018-09-09 13:26 | MRI ---
Date of service: 09/08/2018 PROCEDURE: MRI Left Foot With AND Without Contrast HISTORY: Pain. COMPARISON: None available. TECHNIQUE: Multiecho multiplanar sequences were performed through the left foot without the use of intravenous contrast. Following intravenous administration of Omniscan 22 cc, fat-suppressed T1 weighted sequences were repeated. Forefoot and mid foot anatomy have been captured in this examination. Hindfoot anatomy is captured in separate left ankle MRI also performed 09/08/2018. Please see separate report. FINDINGS: BONES: No fracture. Normal marrow signal. No definitive abnormal marrow enhancement appreciated. MUSCLES: Normal. SOFT TISSUES: Prominent left foot cellulitis is appreciated, particularly at the mid and lateral dorsal midfoot and hindfoot soft tissue edema surrounds the short and long extensor digitorum tendons suspicious for tenosynovitis, potentially infectious. No definite abscess appreciable. LISFRANC LIGAMENT: Intact without definite acute tear. PLANTAR PLATE: Intact. EXTENSOR TENDONS: As above. FLEXOR TENDONS: Unremarkable. OTHER FINDINGS: None. IMPRESSION: No evidence to suggest osteomyelitis of the forefoot and midfoot with extensor digitorum long and short tendon tenosynovitis suggested. Examination evaluates the forefoot and midfoot bony anatomy. For calcaneal evaluation. Please see separate left ankle MRI without contrast also performed 09/08/2018. Concordant preliminary report from Manuela, 09/08/2018 9:51 p.m..
--- NOTE | 2018-09-09 13:36 | MRI ---
Date of service: 09/08/2018 PROCEDURE: MRI Left Ankle With and without Contrast HISTORY: Pain. COMPARISON: None available. TECHNIQUE: Multiecho multiplanar sequences were performed through the left ankle without the use of intravenous contrast initially. Following intravenous administration of Omniscan at 22 cc total dose intravenously, fat-suppressed T1 weighted imaging was performed in multiple sequences. Note, this exam includes hindfoot bony anatomy from left foot. FINDINGS: No MR evidence to suggest osteomyelitis including the calcaneus. ANTERIOR EXTENSOR TENDONS: Normal. MEDIAL FLEXOR TENDONS: Normal. PERONEAL TENDONS: Normal. ANTERIOR INFERIOR TIBIOFIBULAR (SYNDESMOSIS): Normal. POSTERIOR INFERIOR TIBIOFIBULAR (SYNDESMOSIS): Normal. ANTERIOR TALOFIBULAR LIGAMENT: Normal. POSTERIOR TALOFIBULAR LIGAMENT: Normal. PLANTAR FASCIA: Unremarkable although there is a large plantar calcaneal spur identified at the calcaneal base. SINUS TARSI: Normal. ACHILLES TENDON: Patient status post Achilles tendon rupture repair including possible screws or screw defects at the posterior calcaneus at the insertion possible recurrent partial tear 2.5 cm cephalad to the insertion site. Clinically correlate further. DELTOID LIGAMENT COMPLEX - DEEP: Normal. CALCANEOFIBULAR LIGAMENT: Normal. SPRING (PLANTAR CALCANEO-NAVICULAR) LIGAMENT: Normal. BONES: Normal marrow signal. CARTILAGE: Multifocal chondromalacia throughout hindfoot and midfoot joints diffusely.. JOINT FLUID: Normal. MUSCLES: Normal. OTHER FINDINGS: Soft tissue edema surrounds the ankle but spares the anterior ankle soft tissues more so than lateral and medial ankle soft tissues. Limited degenerative cortical sclerosis appreciate throughout the hindfoot and midfoot joints. No abscess identified or definite emphysematous soft tissue changes grossly.. IMPRESSION: 1. Evidence of osteomyelitis including the calcaneus. 2. Postoperative changes status post Achilles tendon repair with partial tear just cephalad to the insertion of the Achilles tendon appreciated. 3. Degenerative joint disease throughout the left ankle and hindfoot/midfoot joints. 4. Large calcaneal spur. Concordant preliminary report from Manuela, 09/08/2018 9:53 p.m..
--- NOTE | 2018-09-09 13:48 | CP.PCM.CON ---
History of Present Illness - History of Present Illness History of Present Illness: 78 y/o female patient for possible OM Left heel Patient states she fell in March and had surgery on March 11 for torn Achilles tendon Patient states her wound has not healed since. Patient has had multiple wound debridement pro cedures. She was told by her plastic surgeon that she might have infection of the heel bone and was advised to come to the ED An MRI was positive for calcaneal changes consistent with OM Cultures so far have been negative PMH: HTN. Obstructed sleep apnea, CAD, Rosacea, Arthritis PSH: Gallbladder, partial hysterectomy, B/L knee replacement Allergy: Environmental SH: Denies illcit drug use, lives with . Review of Systems - Review of Systems All systems: reviewed and no additional remarkable complaints except - Constitutional Constitutional: As Per HPI. absent: Anorexia, Chills, Fever, Malaise - EENT Eyes: absent: As Per HPI, Blind Spots, Blurred Vision, Change in Vision, Decreased Night Vision, Diplopia, Discharge, Dry Eye, Exophthalmos, Floaters, Irritation, Itchy Eyes, Loss of Peripheral Vision, Pain, Photophobia, Requires Corrective Lenses, Sees Flashes, Spots in Vision, Tunnel Vision, Other Visual Disturbances, Loss of Vision, Other Ears: absent: As Per HPI, Decreased Hearing, Ear Discharge, Ear Pain, Tinnitus, Abnormal Hearing, Disequilibrium, Dizziness, Other Nose/Mouth/Throat: absent: As Per HPI, Epistaxis, Nasal Congestion, Nasal Discharge, Nasal Obstruction, Nasal Trauma, Nose Pain, Post Nasal Drip, Sinus Pain, Sinus Pressure, Bleeding Gums, Change in Voice, Dental Pain, Dry Mouth, Dysphagia, Halitosis, Hoarsness, Lip Swelling, Mouth Lesions, Mouth Pain, O dynophagia, Sore Throat, Throat Swelling, Tongue Swelling, Facial Pain, Neck Pain, Neck Mass, Other - Breasts Breasts: absent: As Per HPI, Change in Shape, Mass, Pain, Nipple Discharge, Nipple Inversion, Skin Changes, Swelling, Other - Cardiovascular Cardiovascular: absent: As Per HPI, Acrocyanosis, Chest Pain, Chest Pain at Rest, Chest Pain with Activity, Claudication, Diaphoresis, Dyspnea, Dyspnea on Exertion, Edema, Irregular Heart Rhythm, Pain Radiating to Arm/Neck/Jaw, Leg Edema, Leg Ulcers, Lightheadedness, Orthopnea, Palpitations, Paroxysmal Nocturnal Dyspnea, Pedal Edema, Radiating Pain, Rapid Heart Rate, Slow Heart Rate, Syncope, Other - Respiratory Respiratory: As Per HPI - Gastrointestinal Gastrointestinal: absent: As Per HPI, Abdominal Pain, Belching, Bloating, Change in Bowel Habits, Change in Stool Character, Coffee Ground Emesis, Constipation, Cramping, Diarrhea, Dyspepsia, Dysphagia, Early Satiety, Excessive Flatus, Fecal Incontinence, Heartburn, Hematemesis, Hematochezia, Loose Stools, Melena, Nausea, Odynophagia, Temesmus, Vomiting, Other - Genitourinary Genitourinary: absent: As Per HPI, Change in Urinary Stream, Difficulty Urinating, Dysuria, Flank Pain, Hematuria, Pyuria, Nocturia, Urinary Incontinence, Urinary Frequency, Urinary Hesitance, Urinary Urgency, Voiding Freq/Small Amts, Freq UTI, Hx Renal/Bladder Calculi, Hx /Renal Surgery, Bladder Distension, Other - Reproductive: Female Reproductive:Female: absent: As Per HPI, Amenorrhea, Amenorrhea/ Control, Currently Menstual, Cycle <21 Days, Cycle >35 Days, Cycle Variable, Menses 1-7 Days, Menses >/= 8 Days, Menses Variable, Cycle > 4 Weeks Between, No Menses for 6 Months, Heavy Menses, Light Menses, Normal Menses, Spotting Between Cycles, S/P Hysterectomy, Menopausal, Post Menopausal, Premenarche, Abnormal Vaginal Bleeding, Dysmenorrhea, Dyspareunia, Genital Lesions, Genital Pruritis, Pelvic Pain, Prolapse Symptoms, Sexual Dysfunction, Vaginal Discharge, Vaginal Dryness, Vaginal Odor, Vaginal Pruritis, Other - Menstruation Menstruation: absent: As Per HPI, Amenorrhea, Amenorrhea/ Control, Currently Menstual, Cycle <21 Days, Cycle >35 Days, Cycle Variable, Menses 1-7 Days, Menses >/= 8 Days, Menses Variable, Cycle > 4 Weeks Between, No Menses for 6 Months, Heavy Menses, Light Menses, Normal Menses, Spotting Between Cycles, S/P Hysterectomy, Menopausal, Post Menopausal, Premenarche, Abnormal Vaginal Ble eding, Dysmenorrhea, Other - Musculoskeletal Musculoskeletal: As Per HPI - Integumentary Integumentary: As Per HPI, Skin Pain, Wounds - Neurological Neurological: absent: As Per HPI, Abnormal Gait, Abnormal Hearing, Abnormal Movements, Abnormal Speech, Behavioral Changes, Burning Sensations, Confusion, Convulsions, Disequilibrium, Dizziness, Numbness, Focal Weakness, Frequent Fall s, Headaches, Lack of Coordination, Loss of Vision, Memory Loss, Paresthesias, Radicular Pain, Restless Legs, Sensory Deficit, Syncope, Tingling, Tremor, Vertigo, Weakness, Other Visual Disturbances, Other - Psychiatric Psychiatric: absent: As Per HPI, Abnormal Sleep Pattern, Anhedonia, Anxiety, Auditory Hallucinations, Behavioral Changes, Change in Appetite, Change in Libido, Confusion, Depression, Difficulty Concentrating, Hallucinations, Homicidal Ideation, Hopelessness, Irritability, Memory Loss, Mood Swings, Panic Attacks, Paranoia, Suicidal Ideation, Visual Hallucinations, Tactile Hallucinations, Other - Endocrine Endocrine: absent: As Per HPI, Change in Body Appearance, Change in Libido, Cold Intolorance, Deepening of Voice, Excessive Sweating, Fatigue, Flushing, Heat Intolorance, Increase in Ring/Shoe/Hat Size, Palpitations, Polydipsia, Polyphagia, Polyuria, Other - Hematologic/Lymphatic Hematologic: absent: As Per HPI, Easy Bleeding, Easy Bruising, Lymphadenopathy, Other Past Patient History - Past Medical History & Family History Past Medical History?: Yes - Past Social History Smoking Status: Never Smoked - CARDIAC Hx Cardiac Disorders: Yes Hx Hypertension: Yes - PULMONARY Hx Respiratory Disorders: Yes Hx Bronchitis: Yes Hx Sleep Apnea: Yes (w/ c-pap) - NEUROLOGICAL Hx Neurological Disorder: No - HEENT Hx HEENT Problems: Yes Hx Cataracts: Yes (mild) Hx Macular Degeneration: Yes (mild) - RENAL Hx Chronic Kidney Disease: No - ENDOCRINE/METABOLIC Hx Endocrine Disorders: No - HEMATOLOGICAL/ONCOLOGICAL Hx Blood Disorders: No Hx AIDS: No Hx Blood Transfusions: No Hx Human Immunodeficiency Virus (HIV): No - INTEGUMENTARY Hx Dermatological Problems: No - MUSCULOSKELETAL/RHEUMATOLOGICAL Hx Musculoskeletal Disorders: Yes Hx Arthritis: Yes (general/hands) Hx Falls: No Hx Osteomyelitis: Yes - GASTROINTESTINAL Hx Gastrointestinal Disorders: No - GENITOURINARY/GYNECOLOGICAL Hx Genitourinary Disorders: Yes Hx Incontinence: Yes - PSYCHIATRIC Hx Psychophysiologic Disorder: No Hx Emotional Abuse: No Hx Physical Abuse: No Hx Substance Use: No - SURGICAL HISTORY Hx Surgeries: Yes Hx Cholecystectomy: Yes - ANESTHESIA Hx Anesthesia: Yes Hx Anesthesia Reactions: No Hx Malignant Hyperthermia: No Meds Allergies/Adverse Reactions: Allergies Allergy/AdvReac Type Severity Reaction Status Date / Time doxycycline [From Vibramycin] Allergy RASH Verified 05/05/18 12:31 losartan Allergy DIZZINESS Verified 07/23/18 09:38 - Medications Medications: Current Medications Aspirin (Ecotrin) 81 mg PO HS [facility] Last Admin: 09/08/18 22:01 Dose: 81 mg Celecoxib (Celebrex) 200 mg PO DAILY [facility] Last Admin: 09/09/18 09:08 Dose: 200 mg Cholecalciferol (Vitamin D) 1,000 intlu PO DAILY [facility] Last Admin: 09/09/18 09:09 Dose: 1,000 intlu Enoxaparin Sodium (Lovenox) 40 mg SC DAILY [facility]; Protocol Home Med (Ascorbate Calcium/Bioflavonoid [Dariana-C 500 Mg Tablet]) 1 tab PO DA KEVIN [facility] Home Med (Calcium Carb/Mag Oxide/Zinc Ox [Ppxpftk-Mcfytnbbi-Hmld Caplet]) 1 tab PO DAILY [facility] Home Med (Vitamin B Complex [Super B-50 Complex]) 1 cap PO DAILY [facility] Hydrochlorothiazide (Microzide) 12.5 mg PO Q48H [facility] Last Admin: 09/08/18 21:25 Dose: Not Given Ampicillin Sodium/Sulbactam (Sodium 3 gm/ Sodium Chloride) 100 mls @ 100 mls/hr IVPB Q6 [facility]; Protocol Last Admin: 09/09/18 09:12 Dose: 100 mls/hr Vancomycin HCl 1 gm/ Sodium (Chloride) 250 mls @ 250 mls/hr IVPB Q12H [facility]; Protocol Last Admin: 09/09/18 09:11 Dose: 250 mls/hr Loratadine (Claritin) 10 mg PO DAILY [facility] Last Admin: 09/09/18 09:08 Dose: 10 mg Metoprolol Tartrate (Lopressor) 100 mg PO BID [facility] Last Admin: 09/09/18 09:13 Dose: Not Given Montelukast Sodium (Singulair) 10 mg PO HS [facility] Last Admin: 09/08/18 22:01 Dose: 10 mg Multivitamins/Minerals (Therapeutic-M Tab) 1 tab PO DAILY [facility] Last Admin: 09/09/18 09:08 Dose: 1 tab Tramadol HCl (Ultram) 50 mg PO Q6 PRN PRN Reason: Pain, severe (8-10) Last Admin: 09/08/18 21:10 Dose: 50 mg Physical Exam - Constitutional Appears: Non-toxic, Chronically Ill - Head Exam Head Exam: NORMOCEPHALIC - Eye Exam Eye Exam: absent: Scleral icterus - ENT Exam ENT Exam: Mucous Membranes Dry, Normal External Ear Exam - Neck Exam Neck exam: Negative for: Lymphadenopathy - Respiratory Exam Respiratory Exam: Decreased Breath Sounds, Prolonged Expiratory Phase, Rhonchi - Cardiovascular Exam Cardiovascular Exam: REGULAR RHYTHM, +S1, +S2 - GI/Abdominal Exam GI & Abdominal Exam: Diminished Bowel Sounds, Soft. absent: Tenderness - Rectal Exam Rectal Exam: Deferred - Exam Exam: NORMAL INSPECTION - Extremities Exam Extremities exam: Positive for: pedal pulses present. Negative for: calf tenderness, pedal edema - Back Exam Back exam: absent: CVA tenderness (L), CVA tenderness (R), paraspinal tenderness - Neurological Exam Neurological exam: Alert, CN II-XII Intact, Oriented x3, Reflexes Normal - Psychiatric Exam Psychiatric exam: Normal Mood - Skin Skin Exam: Dry Results - Vital Signs Recent Vital Signs: Last Vital Signs Temp 97.9 F 09/09/18 12:17 Pulse 48 L 09/09/18 12:17 Resp 18 09/09/18 12:17 BP 134/56 L 09/09/18 12:17 Pulse Ox 97 09/09/18 12:17 - Labs Result Diagrams: 09/08/18 13:34 09/08/18 13:34 Labs: Laboratory Results - last 24 hr 09/08/18 09/08/18 09/08/18 13:34 13:34 14:04 WBC 9.5 RBC 4.75 Hgb 13.5 Hct 40.5 MCV 85.4 D MCH 28.4 MCHC 33.3 RDW 13.1 Plt Count 254 MPV 8.0 Neut % (Auto) 67.5 Lymph % (Auto) 20.2 [place] % (Auto) 9.7 Eos % (Auto) 2.0 Baso % (Auto) 0.6 Neut # (Auto) 6.4 Lymph # (Auto) 1.9 [place] # (Auto) 0.9 H Eos # (Auto) 0.2 Baso # (Auto) 0.1 pO2 61 H VBG pH 7.41 VBG pCO2 41 VBG HCO3 25.7 VBG Total CO2 27.3 VBG O2 Sat (Calc) 96.3 H VBG Base Excess 1.2 VBG Potassium 4.3 Glucose 91 Lactate 1.2 FiO2 21.0 Sodium 140 137.0 Potassium 4.1 Chloride 103 108.0 H Carbon Dioxide 23 Anion Gap 18 BUN 19 H Creatinine 0.7 Est GFR ( Amer) > 60 Est GFR (Non-Af Amer) > 60 Random Glucose 89 Calcium 9.6 Total Bilirubin 0.4 AST 21 ALT 20 Alkaline Phosphatase 59 Total Protein 7.3 Albumin 4.0 Globulin 3.3 Albumin/Globulin Ratio 1.2 Venous Blood Potassium 4.3 Assessment & Plan (1) Osteomyelitis Status: Acute (2) CAD (coronary artery disease) Status: Acute (3) ESTELLE (obstructive sleep apnea) Status: Acute - Assessment and Plan (Free Text) Assessment: possible OM Left heal in a 78 yo female with Hx of nonhealing achilles tendon repair after fall in Mar 2018 Cultures so far negative and ability to obtain bone cultures may be dfficult Empiric rx may be warranted fr 6-8 weeks Consider arterial studies/ vascular eval if not done yet Will need PICC line
[2018-09-10] MEDS: Piperacillin/Tazobact 4.5 GM in Sodium Chloride 0.9% 100 ML IVPB SCH ×3 (00:11→17:28)
[2018-09-10 05:26] LABS: HEMOGLOBIN 12.5 g/dL (12.0-16.0); MEAN CELL VOLUME 86.5 fl (81.0-99.0); MEAN CORPUSCULAR HEMOGLOBIN 27.8 pg (27.0-31.0); MEAN CORPUSCULAR HGB CONC 32.1 g/dL (33.0-37.0); RBC 4.52 Mil/uL (3.80-5.20); RED CELL DISTRIBUTION WIDTH 13.1 % (11.5-14.5); WHITE BLOOD COUNT 8.3 K/uL (4.8-10.8)
[2018-09-10 05:56] LABS: BLOOD UREA NITROGEN 18 mg/dl (7-17); GFR NON-AFRICAN AMERICAN > 60
--- NOTE | 2018-09-10 08:32 | CP.PCM.PN ---
Subjective - Date & Time of Evaluation Date of Evaluation: 09/10/18 Time of Evaluation: 08:30 - Subjective Subjective: Podiatry progress note for Dr. Mcconnell, 78 y/o female patient seen and evaluated at bedside for left achilles wound. Patient is AAOx3 and in NAD. Patient states she is in no discomfort right now. Patient denies any acute pedal complains. Denies N/F/V/SOB/CP. Objective - Vital Signs/Intake and Output Vital Signs (last 24 hours): Temp Pulse Resp BP Pulse Ox 97.4 F L 50 L 18 149/75 96 09/10/18 08:00 09/10/18 08:22 09/10/18 08:00 09/10/18 08:00 09/10/18 08:00 Intake and Output: 09/10/18 09/10/18 06:59 18:59 Intake Total 550 Balance 550 - Medications Medications: Current Medications Aspirin (Ecotrin) 81 mg PO HS [facility] Last Admin: 09/09/18 21:28 Dose: 81 mg Celecoxib (Celebrex) 200 mg PO DAILY [facility] Last Admin: 09/09/18 09:08 Dose: 200 mg Cholecalciferol (Vitamin D) 1,000 intlu PO DAILY [facility] Last Admin: 09/09/18 09:09 Dose: 1,000 intlu Enoxaparin Sodium (Lovenox) 50 mg SC DAILY [facility]; Protocol Home Med (Ascorbate Calcium/Bioflavonoid [Dariana-C 500 Mg Tablet]) 1 tab PO DAILY [facility] Home Med (Calcium Carb/Mag Oxide/Zinc Ox [Mmprikq-Hywrkqvqj-Main Caplet]) 1 tab PO DAILY [facility] Home Med (Vitamin B Complex [Super B-50 Complex]) 1 cap PO DAILY [facility] Hydrochlorothiazide (Microzide) 12.5 mg PO Q48H [facility] Last Admin: 09/08/18 21:25 Dose: Not Given Vancomycin HCl 1 gm/ Sodium (Chloride) 250 mls @ 250 mls/hr IVPB Q12H [facility]; Protocol Last Admin: 09/10/18 05:44 Dose: 250 mls/hr Piperacillin Sod/Tazobactam (Sod 4.5 gm/ Sodium Chloride) 100 mls @ 100 mls/hr IVPB Q8 [facility]; Protocol Last Admin: 09/10/18 00:11 Dose: 100 mls/hr Loratadine (Claritin) 10 mg PO DAILY [facility] Last Admin: 09/09/18 09:08 Dose: 10 mg Metoprolol Tartrate (Lopressor) 100 mg PO BID [facility] Last Admin: 09/09/18 17:59 Dose: Not Given Montelukast Sodium (Singulair) 10 mg PO HS [facility] Last Admin: 09/09/18 21:28 Dose: 10 mg Multivitamins/Minerals (Therapeutic-M Tab) 1 tab PO DAILY [facility] Last Admin: 09/09/18 09:08 Dose: 1 tab Tramadol HCl (Ultram) 50 mg PO Q6 PRN PRN Reason: Pain, severe (8-10) Last Admin: 09/09/18 23:21 Dose: 50 mg - Labs Labs: 09/10/18 04:45 09/10/18 04:45 - Constitutional Appears: Well, Non-toxic, No Acute Distress - Head Exam Head Exam: ATRAUMATIC - Eye Exam Eye Exam: Normal appearance - Extremities Exam Additional comments: LLE focused exam: Vascular: DP/PT 2/4, CFT <3 seconds, mild edema to left ankle, TG WNL Ortho: Tenderness on palpation of calf secondary to open wound, pain upon palpation of achilles tendon, MMT 4/5 due to patient guarding. Palpable gap to left achilles tendon. Neuro: Gross and protective sensation intact Derm: 5 cm x 2 cm wound to the posterior aspect of the heel, with no active drainage, granular base, no malodor, no erythema, no probe to bone, no tracking or tunneling noted. - Neurological Exam Neurological Exam: Alert, Awake, Oriented x3 Assessment and Plan - Assessment and Plan (Free Text) Assessment: 78 yo female seen and evaluated for left achilles wound with possible osteomyelitis Plan: Patient seen and evaluated Chart, labs and vitals reviewed. Left heel dressed with telfa, allevyn and SELVIN ID consult ordered; recommendations appreciated- PICC line 6-8 weeks of IV antibiotics Foot/ankle MRI with/without contrast ordered to rule out osteomyelitis: osteomyelitis of the calcaneus Continue IV antibiotics Stable for discharge from podiatry point of view; Podiatry will continue to follow the patient while in house
[2018-09-10] MEDS: Enoxaparin 60 mg Syringe SC SCH (09:15)
[2018-09-10] MEDS: Cholecalciferol 1,000 INTLU TAB PO SCH (09:17)
[2018-09-10] MEDS: Multivitamin With Minerals Tab PO SCH (09:17)
--- NOTE | 2018-09-10 11:59 | CP.PCM.PN ---
Subjective - Date & Time of Evaluation Date of Evaluation: 09/09/18 Time of Evaluation: 13:15 Objective - Vital Signs/Intake and Output Vital Signs (last 24 hours): Temp Pulse Resp BP Pulse Ox 97.4 F L 50 L 18 149/75 96 09/10/18 08:00 09/10/18 09:18 09/10/18 08:00 09/10/18 09:18 09/10/18 08:00 Intake and Output: 09/10/18 09/10/18 06:59 18:59 Intake Total 550 Balance 550 - Medications Medications: Current Medications Aspirin (Ecotrin) 81 mg PO HS [facility] Last Admin: 09/09/18 21:28 Dose: 81 mg Celecoxib (Celebrex) 200 mg PO DAILY [facility] Last Admin: 09/10/18 09:11 Dose: 200 mg Cholecalciferol (Vitamin D) 1,000 intlu PO DAILY [facility] Last Admin: 09/10/18 09:17 Dose: 1,000 intlu Enoxaparin Sodium (Lovenox) 50 mg SC DAILY [facility]; Protocol Last Admin: 09/10/18 09:15 Dose: Not Given Home Med (Ascorbate Calcium/Bioflavonoid [Dariana-C 500 Mg Tablet]) 1 tab PO DAILY [facility] Home Med (Calcium Carb/Mag Oxide/Zinc Ox [[place]-Ginqcoybi-Rvqo Caplet]) 1 tab PO DAILY [facility] Home Med (Vitamin B Complex [Super B-50 Complex]) 1 cap PO DAILY [facility] Hydrochlorothiazide (Microzide) 12.5 mg PO Q48H [facility] Last Admin: 09/10/18 09:16 Dose: 12.5 mg Vancomycin HCl 1 gm/ Sodium (Chloride) 250 mls @ 250 mls/hr IVPB Q12H [facility]; Protocol Last Admin: 09/10/18 05:44 Dose: 250 mls/hr Piperacillin Sod/Tazobactam (Sod 4.5 gm/ Sodium Chloride) 100 mls @ 100 mls/hr IVPB Q8 [facility]; Protocol Last Admin: 09/10/18 09:22 Dose: 100 mls/hr Loratadine (Claritin) 10 mg PO DAILY [facility] Last Admin: 09/10/18 09:16 Dose: Not Given Metoprolol Tartrate (Lopressor) 100 mg PO BID [facility] Last Admin: 09/10/18 09:18 Dose: Not Given Montelukast Sodium (Singulair) 10 mg PO HS [facility] Last Admin: 09/09/18 21:28 Dose: 10 mg Multivitamins/Minerals (Therapeutic-M Tab) 1 tab PO DAILY [facility] Last Admin: 09/10/18 09:17 Dose: 1 tab Tramadol HCl (Ultram) 50 mg PO Q6 PRN PRN Reason: Pain, severe (8-10) Last Admin: 09/09/18 23:21 Dose: 50 mg - Labs Labs: 09/10/18 04:45 09/10/18 04:45
[2018-09-10 12:53] LABS: PROTHROMBIN TIME 10.8 Seconds (9.8-13.1)
--- NOTE | 2018-09-10 16:35 | RAD ---
Date of service: 09/10/2018 HISTORY: s/p PICC INSERTION; verification COMPARISON: 09/08/2018 FINDINGS: LUNGS: No active pulmonary disease. PLEURA: No significant pleural effusion identified, no pneumothorax apparent. CARDIOVASCULAR: No radiographic findings to suggest acute or significant cardiovascular disease. Atherosclerotic calcifications identified primarily aortic arch. PICC line in satisfactory position inserted via left upper extremity approach, the tip is in the SVC. OSSEOUS STRUCTURES: No significant abnormalities. VISUALIZED UPPER ABDOMEN: Normal. OTHER FINDINGS: None. IMPRESSION: Satisfactory position of recently placed PICC line. Otherwise, no significant interval change compared to the prior examination(s).
[2018-09-10] MEDS: BYSTOLIC 20 MG PO SCH (21:11)
--- NOTE | 2018-09-11 07:46 | CP.PCM.PN ---
Subjective - Date & Time of Evaluation Date of Evaluation: 09/11/18 Time of Evaluation: 07:45 - Subjective Subjective: Podiatry progress note for Dr. Mcconnell, 78 y/o female patient seen and evaluated at bedside for left achilles wound. Patient is AAOx3 and in NAD. Patient states she is in no discomfort right now. Patient denies any acute pedal complains. Denies N/F/V/SOB/CP. Objective - Vital Signs/Intake and Output Vital Signs (last 24 hours): Temp Pulse Resp BP Pulse Ox 97.5 F L 47 L 18 164/59 H 97 09/11/18 04:51 09/11/18 04:51 09/11/18 04:51 09/11/18 04:51 09/11/18 04:51 - Medications Medications: Current Medications Aspirin (Ecotrin) 81 mg PO HS [facility] Last Admin: 09/10/18 21:11 Dose: 81 mg Celecoxib (Celebrex) 200 mg PO DAILY [facility] Last Admin: 09/10/18 09:11 Dose: 200 mg Cholecalciferol (Vitamin D) 1,000 intlu PO DAILY [facility] Last Admin: 09/10/18 09:17 Dose: 1,000 intlu Enoxaparin Sodium (Lovenox) 50 mg SC DAILY [facility]; Protocol Last Admin: 09/10/18 09:15 Dose: Not Given Home Med (Ascorbate Calcium/Bioflavonoid [Dariana-C 500 Mg Tablet]) 1 tab PO DAILY [facility] Home Med (Calcium Carb/Mag Oxide/Zinc Ox [Akvfszo-Pmjyhczgb-Wkzw Caplet]) 1 tab PO DAILY [facility] Home Med (Vitamin B Complex [Super B-50 Complex]) 1 cap PO DAILY [facility] Home Med (Patient's Own Medication) 1 unit PO DAILY@2220 [facility] Last Admin: 09/10/18 21:11 Dose: 1 unit Hydrochlorothiazide (Microzide) 12.5 mg PO Q48H [facility] Last Admin: 09/10/18 18:13 Dose: Not Given Vancomycin HCl 1 gm/ Sodium (Chloride) 250 mls @ 250 mls/hr IVPB Q12H [facility]; Protocol Last Admin: 09/11/18 07:06 Dose: 250 mls/hr Ampicillin Sodium/Sulbactam (Sodium 3 gm/ Sodium Chloride) 100 mls @ 100 mls/hr IVPB Q6H [facility]; Protocol Last Admin: 09/11/18 05:14 Dose: 100 mls/hr Loratadine (Claritin) 10 mg PO DAILY [facility] Last Admin: 09/10/18 09:16 Dose: Not Given Montelukast Sodium (Singulair) 10 mg PO HS [facility] Last Admin: 09/10/18 21:11 Dose: 10 mg Multivitamins/Minerals (Therapeutic-M Tab) 1 tab PO DAILY [facility] Last Admin: 09/10/18 09:17 Dose: 1 tab Tramadol HCl (Ultram) 50 mg PO Q6 PRN PRN Reason: Pain, severe (8-10) Last Admin: 09/10/18 21:09 Dose: 50 mg - Labs Labs: 09/10/18 04:45 09/10/18 04:45 PT 10.8 Seconds (9.8-13.1) 09/10/18 12:38 INR 1.0 09/10/18 12:38 - Constitutional Appears: Well, Non-toxic, No Acute Distress - Head Exam Head Exam: ATRAUMATIC - Eye Exam Eye Exam: Normal appearance - Extremities Exam Additional comments: LLE focused exam: Vascular: DP/PT 2/4, CFT <3 seconds, mild edema to left ankle, TG WNL Ortho: Tenderness on palpation of calf secondary to open wound, pain upon palpation of achilles tendon, MMT 4/5 due to patient guarding. Palpable gap to left achilles tendon. Neuro: Gross and protective sensation intact Derm: 5 cm x 2 cm wound to the posterior aspect of the heel, with no active drainage, granular base, no malodor, no erythema, no probe to bone, no tracking or tunneling noted. Assessment and Plan - Assessment and Plan (Free Text) Assessment: 78 yo female seen and evaluated for left achilles wound with possible osteomyelitis Plan: Patient seen and evaluated Chart, labs and vitals reviewed. Left heel dressed with telfa, allevyn and SELVIN ID consult ordered; recommendations appreciated- PICC line 6-8 weeks of IV anti biotics Foot/ankle MRI with/without contrast ordered to rule out osteomyelitis: osteomyelitis of the calcaneus Continue IV antibiotics Stable for discharge from podiatry point of view; Podiatry will continue to follow the patient while in house
[2018-09-11] MEDS: Multivitamin With Minerals Tab PO SCH (08:49)
[2018-09-11] MEDS: Cholecalciferol 1,000 INTLU TAB PO SCH (08:49)
[2018-09-11] MEDS: Enoxaparin 60 mg Syringe SC SCH ×2 (08:49→08:55)
--- NOTE | 2018-09-11 14:14 | CP.PCM.PN ---
Subjective - Date & Time of Evaluation Date of Evaluation: 09/11/18 Time of Evaluation: 08:00 - Subjective Subjective: refusing BHUPINDER Has MDRO- Acinetobacter from wound culture- will need UNASYN for 6 weeks q8h prognosis guarded Objective - Vital Signs/Intake and Output Vital Signs (last 24 hours): Temp Pulse Resp BP Pulse Ox 98.7 F 52 L 18 169/68 H 94 L 09/11/18 12:00 09/11/18 12:00 09/11/18 12:00 09/11/18 12:00 09/11/18 12:00 - Medications Medications: Current Medications Aspirin (Ecotrin) 81 mg PO HS [facility] Last Admin: 09/10/18 21:11 Dose: 81 mg Celecoxib (Celebrex) 200 mg PO DAILY [facility] Last Admin: 09/11/18 08:47 Dose: 200 mg Cholecalciferol (Vitamin D) 1,000 intlu PO DAILY [facility] Last Admin: 09/11/18 08:49 Dose: 1,000 intlu Enoxaparin Sodium (Lovenox) 50 mg SC DAILY [facility]; Protocol Last Admin: 09/11/18 08:55 Dose: Not Given Home Med (Ascorbate Calcium/Bioflavonoid [Dariana-C 500 Mg Tablet]) 1 tab PO DAILY [facility] Home Med (Calcium Carb/Mag Oxide/Zinc Ox [Ikykhbp-Vevzcgwej-Abeb Caplet]) 1 tab PO DAILY [facility] Home Med (Vitamin B Complex [Super B-50 Complex]) 1 cap PO DAILY [facility] Home Med (Patient's Own Medication) 1 unit PO DAILY@2220 [facility] Last Admin: 09/10/18 21:11 Dose: 1 unit Hydrochlorothiazide (Microzide) 12.5 mg PO Q48H [facility] Last Admin: 09/10/18 18:13 Dose: Not Given Vancomycin HCl 1 gm/ Sodium (Chloride) 250 mls @ 250 mls/hr IVPB Q12H [facility]; Protocol Last Admin: 09/11/18 07:06 Dose: 250 mls/hr Ampicillin Sodium/Sulbactam (Sodium 3 gm/ Sodium Chloride) 100 mls @ 100 mls/hr IVPB Q6H [facility]; Protocol Last Admin: 09/11/18 13:08 Dose: 100 mls/hr Loratadine (Claritin) 10 mg PO DAILY [facility] Last Admin: 09/11/18 08:48 Dose: 10 mg Montelukast Sodium (Singulair) 10 mg PO HS [facility] Last Admin: 09/10/18 21:11 Dose: 10 mg Multivitamins/Minerals (Therapeutic-M Tab) 1 tab PO DAILY [facility] Last Admin: 09/11/18 08:49 Dose: 1 tab Tramadol HCl (Ultram) 50 mg PO Q6 PRN PRN Reason: Pain, severe (8-10) Last Admin: 09/10/18 21:09 Dose: 50 mg - Labs Labs: 09/10/18 04:45 09/10/18 04:45 PT 10.8 Seconds (9.8-13.1) 09/10/18 12:38 INR 1.0 09/10/18 12:38 - Constitutional Appears: Non-toxic, Chronically Ill - Head Exam Head Exam: NORMOCEPHALIC - Eye Exam Eye Exam: absent: Scleral icterus - ENT Exam ENT Exam: Mucous Membranes Dry - Neck Exam Neck Exam: absent: Lymphadenopathy - Respiratory Exam Respiratory Exam: Decreased Breath Sounds - Cardiovascular Exam Cardiovascular Exam: REGULAR RHYTHM - GI/Abdominal Exam GI & Abdominal Exam: Distended, Soft - Rectal Exam Rectal Exam: Deferred - Exam Exam: NORMAL INSPECTION - Extremities Exam Extremities Exam: Pedal Edema - Back Exam Back Exam: absent: CVA tenderness (L), CVA tenderness (R) - Neurological Exam Neurological Exam: Alert, Awake, CN II-XII Intact, Oriented x3 - Psychiatric Exam Psychiatric exam: Normal Mood - Skin Skin Exam: Dry Assessment and Plan (1) Osteomyelitis Status: Acute (2) CAD (coronary artery disease) Status: Acute (3) ESTELLE (obstructive sleep apnea) Status: Acute - Assessment and Plan (Free Text) Assessment: cont iv rx refusing BHUPINDER prognosis for limb salvage guarded
[2018-09-11] MEDS: BYSTOLIC 20 MG PO SCH ×2 (21:25→21:26)
[2018-09-12 06:40] LABS: HEMOGLOBIN 12.3 g/dL (12.0-16.0); MEAN CELL VOLUME 85.3 fl (81.0-99.0); MEAN CORPUSCULAR HEMOGLOBIN 28.7 pg (27.0-31.0); MEAN CORPUSCULAR HGB CONC 33.6 g/dL (33.0-37.0); RBC 4.29 Mil/uL (3.80-5.20); RED CELL DISTRIBUTION WIDTH 12.7 % (11.5-14.5); WHITE BLOOD COUNT 7.9 K/uL (4.8-10.8)
[2018-09-12 06:57] LABS: BLOOD UREA NITROGEN 15 mg/dl (7-17); CALCIUM 8.9 mg/dL (8.4-10.2); GFR NON-AFRICAN AMERICAN > 60
[2018-09-12] MEDS: Enoxaparin 60 mg Syringe SC SCH (09:15)
[2018-09-12] MEDS: Multivitamin With Minerals Tab PO SCH (09:17)
[2018-09-12] MEDS: Cholecalciferol 1,000 INTLU TAB PO SCH (09:18)
--- NOTE | 2018-09-12 16:51 | CP.PCM.PN ---
Subjective - Date & Time of Evaluation Date of Evaluation: 09/12/18 Time of Evaluation: 08:25 - Subjective Subjective: Podiatry progress note for Dr. Mcconnell, 78 y/o female patient seen and evaluated at bedside for Non healing left Achilles wound. Patient is AAOx3 and in NAD. Patient states she ihas yesterday runny nose and was feeling sick. Patient denies any acute pedal complains. Denies any overnight N/F/V/SOB/CP. Objective - Vital Signs/Intake and Output Vital Signs (last 24 hours): Temp Pulse Resp BP Pulse Ox 98.4 F 49 L 20 162/51 H 96 09/12/18 15:58 09/12/18 15:58 09/12/18 15:58 09/12/18 15:58 09/12/18 15:58 - Medications Medications: Current Medications Aspirin (Ecotrin) 81 mg PO HS [facility] Last Admin: 09/11/18 23:13 Dose: 81 mg Celecoxib (Celebrex) 200 mg PO DAILY [facility] Last Admin: 09/12/18 09:15 Dose: 200 mg Cholecalciferol (Vitamin D) 1,000 intlu PO DAILY [facility] Last Admin: 09/12/18 09:18 Dose: 1,000 intlu Enoxaparin Sodium (Lovenox) 50 mg SC DAILY [facility]; Protocol Last Admin: 09/12/18 09:15 Dose: Not Given Home Med (Ascorbate Calcium/Bioflavonoid [Dariana-C 500 Mg Tablet]) 1 tab PO DAILY [facility] Home Med (Calcium Carb/Mag Oxide/Zinc Ox [Jhibsrq-Dydjfzyfe-Ytol Caplet]) 1 tab PO DAILY [facility] Home Med (Vitamin B Complex [Super B-50 Complex]) 1 cap PO DAILY [facility] Home Med (Patient's Own Medication) 1 unit PO DAILY@2220 [facility] Last Admin: 09/11/18 21:26 Dose: 1 unit Home Med (Patient's Own Medication) 5 unit PO DAILY [facility] Hydrochlorothiazide (Microzide) 12.5 mg PO Q48H [facility] Last Admin: 09/12/18 09:30 Dose: 12.5 mg Vancomycin HCl 1 gm/ Sodium (Chloride) 250 mls @ 250 mls/hr IVPB Q12H [facility]; Protocol Last Admin: 09/12/18 06:08 Dose: 250 mls/hr Ampicillin Sodium/Sulbactam (Sodium 3 gm/ Sodium Chloride) 100 mls @ 100 mls/hr IVPB Q6H [facility]; Protocol Last Admin: 09/12/18 12:11 Dose: 100 mls/hr Montelukast Sodium (Singulair) 10 mg PO HS [facility] Last Admin: 09/11/18 21:25 Dose: 10 mg Multivitamins/Minerals (Therapeutic-M Tab) 1 tab PO DAILY [facility] Last Admin: 09/12/18 09:17 Dose: 1 tab Tramadol HCl (Ultram) 50 mg PO Q6 PRN PRN Reason: Pain, severe (8-10) Last Admin: 09/11/18 22:16 Dose: 50 mg - Labs Labs: 09/12/18 04:30 09/12/18 04:30 PT 10.8 Seconds (9.8-13.1) 09/10/18 12:38 INR 1.0 09/10/18 12:38 - Constitutional Appears: Well, Non-toxic, No Acute Distress - Head Exam Head Exam: ATRAUMATIC, NORMOCEPHALIC - Extremities Exam Additional comments: LLE focused exam: Vascular: DP/PT 2/4, Cap refill <3 seconds, mild edema to left ankle, TG WNL Neuro: Gross and protective sensation intact Derm: 5 cm x 2 cm wound to the posterior aspect of the heel, with no active drainage, granular base, no malodor, no erythema, no probe to bone, no tracking or tunneling noted. MSK: Tenderness on palpation of calf secondary to open wound, pain upon palpation of Achilles tendon, MMT 4/5 due to patient guarding. Palpable gap to left achilles tendon. - Neurological Exam Neurological Exam: Alert, Awake, Oriented x3 - Psychiatric Exam Psychiatric exam: Normal Affect, Normal Mood Assessment and Plan - Assessment and Plan (Free Text) Assessment: 78 y/o female seen and evaluated for Non healing left achilles wound with possible osteomyelitis Plan: Patient seen and evaluated Plan discussed with Dr. Mcconnell. Chart, labs and vitals reviewed. Left heel dressed with telfa, DSD, ABD and SELVIN ID consult ordered; recommendations appreciated PICC line 6-8 weeks of IV antibiotics Foot/ankle MRI with/without contrast: osteomyelitis of the calcaneus Continue IV antibiotics Stable for discharge from podiatry point of view; Podiatry will continue to follow the patient while in house
[2018-09-12] MEDS: LEVOCETRIZINE PO SCH (21:10)
[2018-09-12] MEDS: BYSTOLIC 20 MG PO SCH (21:19)
--- NOTE | 2018-09-12 22:17 | CP.PCM.PN ---
Subjective - Date & Time of Evaluation Date of Evaluation: 09/10/18 Time of Evaluation: 17:35 Objective - Vital Signs/Intake and Output Vital Signs (last 24 hours): Temp Pulse Resp BP Pulse Ox 97.6 F 48 L 20 164/75 H 97 09/12/18 20:31 09/12/18 21:00 09/12/18 20:31 09/12/18 20:31 09/12/18 20:31 Intake and Output: 09/12/18 09/13/18 18:59 06:59 Intake Total 1650 Balance 1650 - Medications Medications: Current Medications Aspirin (Ecotrin) 81 mg PO HS [facility] Last Admin: 09/12/18 21:11 Dose: 81 mg Celecoxib (Celebrex) 200 mg PO DAILY [facility] Last Admin: 09/12/18 09:15 Dose: 200 mg Cholecalciferol (Vitamin D) 1,000 intlu PO DAILY [facility] Last Admin: 09/12/18 09:18 Dose: 1,000 intlu Enoxaparin Sodium (Lovenox) 50 mg SC DAILY [facility]; Protocol Last Admin: 09/12/18 09:15 Dose: Not Given Home Med (Ascorbate Calcium/Bioflavonoid [Dariana-C 500 Mg Tablet]) 1 tab PO DAILY [facility] Home Med (Calcium Carb/Mag Oxide/Zinc Ox [Imxuppo-Apaircisr-Qkeg Caplet]) 1 tab PO DAILY [facility] Home Med (Vitamin B Complex [Super B-50 Complex]) 1 cap PO DAILY [facility] Home Med (Patient's Own Medication) 1 unit PO DAILY@2220 [facility] Last Admin: 09/12/18 21:19 Dose: 1 unit Home Med (Patient's Own Medication) 5 unit PO DAILY [facility] Last Admin: 09/12/18 21:10 Dose: 5 unit Hydrochlorothiazide (Microzide) 12.5 mg PO Q48H [facility] Last Admin: 09/12/18 18:49 Dose: Not Given Vancomycin HCl 1 gm/ Sodium (Chloride) 250 mls @ 250 mls/hr IVPB Q12H [facility]; Protocol Last Admin: 09/12/18 18:20 Dose: 250 mls/hr Ampicillin Sodium/Sulbactam (Sodium 3 gm/ Sodium Chloride) 100 mls @ 100 mls/hr IVPB Q6H [facility]; Protocol Last Admin: 09/12/18 17:11 Dose: 100 mls/hr Montelukast Sodium (Singulair) 10 mg PO HS [facility] Last Admin: 09/12/18 21:11 Dose: 10 mg Multivitamins/Minerals (Therapeutic-M Tab) 1 tab PO DAILY [facility] Last Admin: 09/12/18 09:17 Dose: 1 tab Tramadol HCl (Ultram) 50 mg PO Q6 PRN PRN Reason: Pain, severe (8-10) Last Admin: 09/11/18 22:16 Dose: 50 mg - Labs Labs: 09/12/18 04:30 09/12/18 04:30 PT 10.8 Seconds (9.8-13.1) 09/10/18 12:38 INR 1.0 09/10/18 12:38
--- NOTE | 2018-09-12 22:18 | CP.PCM.PN ---
Subjective - Date & Time of Evaluation Date of Evaluation: 09/12/18 Time of Evaluation: 17:25 Objective - Vital Signs/Intake and Output Vital Signs (last 24 hours): Temp Pulse Resp BP Pulse Ox 97.6 F 48 L 20 164/75 H 97 09/12/18 20:31 09/12/18 21:00 09/12/18 20:31 09/12/18 20:31 09/12/18 20:31 Intake and Output: 09/12/18 09/13/18 18:59 06:59 Intake Total 1650 Balance 1650 - Medications Medications: Current Medications Aspirin (Ecotrin) 81 mg PO HS [facility] Last Admin: 09/12/18 21:11 Dose: 81 mg Celecoxib (Celebrex) 200 mg PO DAILY [facility] Last Admin: 09/12/18 09:15 Dose: 200 mg Cholecalciferol (Vitamin D) 1,000 intlu PO DAILY [facility] Last Admin: 09/12/18 09:18 Dose: 1,000 intlu Enoxaparin Sodium (Lovenox) 50 mg SC DAILY [facility]; Protocol Last Admin: 09/12/18 09:15 Dose: Not Given Home Med (Ascorbate Calcium/Bioflavonoid [Dariana-C 500 Mg Tablet]) 1 tab PO DAILY [facility] Home Med (Calcium Carb/Mag Oxide/Zinc Ox [Ibecgoq-Xdmqfxqgi-Uvfp Caplet]) 1 tab PO DAILY [facility] Home Med (Vitamin B Complex [Super B-50 Complex]) 1 cap PO DAILY [facility] Home Med (Patient's Own Medication) 1 unit PO DAILY@2220 [facility] Last Admin: 09/12/18 21:19 Dose: 1 unit Home Med (Patient's Own Medication) 5 unit PO DAILY [facility] Last Admin: 09/12/18 21:10 Dose: 5 unit Hydrochlorothiazide (Microzide) 12.5 mg PO Q48H [facility] Last Admin: 09/12/18 18:49 Dose: Not Given Vancomycin HCl 1 gm/ Sodium (Chloride) 250 mls @ 250 mls/hr IVPB Q12H [facility]; Protocol Last Admin: 09/12/18 18:20 Dose: 250 mls/hr Ampicillin Sodium/Sulbactam (Sodium 3 gm/ Sodium Chloride) 100 mls @ 100 mls/hr IVPB Q6H [facility]; Protocol Last Admin: 09/12/18 17:11 Dose: 100 mls/hr Montelukast Sodium (Singulair) 10 mg PO HS [facility] Last Admin: 09/12/18 21:11 Dose: 10 mg Multivitamins/Minerals (Therapeutic-M Tab) 1 tab PO DAILY [facility] Last Admin: 09/12/18 09:17 Dose: 1 tab Tramadol HCl (Ultram) 50 mg PO Q6 PRN PRN Reason: Pain, severe (8-10) Last Admin: 09/11/18 22:16 Dose: 50 mg - Labs Labs: 09/12/18 04:30 09/12/18 04:30 PT 10.8 Seconds (9.8-13.1) 09/10/18 12:38 INR 1.0 09/10/18 12:38
--- NOTE | 2018-09-12 22:18 | CP.PCM.PN ---
Subjective - Date & Time of Evaluation Date of Evaluation: 09/11/18 Time of Evaluation: 17:35 Objective - Vital Signs/Intake and Output Vital Signs (last 24 hours): Temp Pulse Resp BP Pulse Ox 97.6 F 48 L 20 164/75 H 97 09/12/18 20:31 09/12/18 21:00 09/12/18 20:31 09/12/18 20:31 09/12/18 20:31 Intake and Output: 09/12/18 09/13/18 18:59 06:59 Intake Total 1650 Balance 1650 - Medications Medications: Current Medications Aspirin (Ecotrin) 81 mg PO HS [facility] Last Admin: 09/12/18 21:11 Dose: 81 mg Celecoxib (Celebrex) 200 mg PO DAILY [facility] Last Admin: 09/12/18 09:15 Dose: 200 mg Cholecalciferol (Vitamin D) 1,000 intlu PO DAILY [facility] Last Admin: 09/12/18 09:18 Dose: 1,000 intlu Enoxaparin Sodium (Lovenox) 50 mg SC DAILY [facility]; Protocol Last Admin: 09/12/18 09:15 Dose: Not Given Home Med (Ascorbate Calcium/Bioflavonoid [Dariana-C 500 Mg Tablet]) 1 tab PO DAILY [facility] Home Med (Calcium Carb/Mag Oxide/Zinc Ox [Dqtgrta-Ojgxaifqy-Wfis Caplet]) 1 tab PO DAILY [facility] Home Med (Vitamin B Complex [Super B-50 Complex]) 1 cap PO DAILY [facility] Home Med (Patient's Own Medication) 1 unit PO DAILY@2220 [facility] Last Admin: 09/12/18 21:19 Dose: 1 unit Home Med (Patient's Own Medication) 5 unit PO DAILY [facility] Last Admin: 09/12/18 21:10 Dose: 5 unit Hydrochlorothiazide (Microzide) 12.5 mg PO Q48H [facility] Last Admin: 09/12/18 18:49 Dose: Not Given Vancomycin HCl 1 gm/ Sodium (Chloride) 250 mls @ 250 mls/hr IVPB Q12H [facility]; Protocol Last Admin: 09/12/18 18:20 Dose: 250 mls/hr Ampicillin Sodium/Sulbactam (Sodium 3 gm/ Sodium Chloride) 100 mls @ 100 mls/hr IVPB Q6H [facility]; Protocol Last Admin: 09/12/18 17:11 Dose: 100 mls/hr Montelukast Sodium (Singulair) 10 mg PO HS [facility] Last Admin: 09/12/18 21:11 Dose: 10 mg Multivitamins/Minerals (Therapeutic-M Tab) 1 tab PO DAILY [facility] Last Admin: 09/12/18 09:17 Dose: 1 tab Tramadol HCl (Ultram) 50 mg PO Q6 PRN PRN Reason: Pain, severe (8-10) Last Admin: 09/11/18 22:16 Dose: 50 mg - Labs Labs: 09/12/18 04:30 09/12/18 04:30 PT 10.8 Seconds (9.8-13.1) 09/10/18 12:38 INR 1.0 09/10/18 12:38
[2018-09-13] MEDS: LEVOCETRIZINE PO SCH (08:41)
[2018-09-13] MEDS: Enoxaparin 60 mg Syringe SC SCH (08:42)
[2018-09-13] MEDS: Cholecalciferol 1,000 INTLU TAB PO SCH (08:42)
[2018-09-13] MEDS: Multivitamin With Minerals Tab PO SCH (08:42)
--- NOTE | 2018-09-13 12:51 | CP.PCM.PN ---
Subjective - Date & Time of Evaluation Date of Evaluation: 09/13/18 Time of Evaluation: 12:48 - Subjective Subjective: Podiatry progress note for Dr. Mcconnell, 78 y/o female patient seen and evaluated at bedside at the bedside with dr. Mcconnell for Non healing left Achilles wound. Patient is AAOx3 and in NAD. Patient states that she is feeling better today and the allergy she had yesterday subsided. Patient denies any acute pedal complains. Denies any overnight N/F/V/SOB/CP. Objective - Vital Signs/Intake and Output Vital Signs (last 24 hours): Temp Pulse Resp BP Pulse Ox 97.5 F L 46 L 20 144/49 L 96 09/13/18 12:15 09/13/18 12:15 09/13/18 12:15 09/13/18 12:15 09/13/18 12:15 - Medications Medications: Current Medications Aspirin (Ecotrin) 81 mg PO HS [facility] Last Admin: 09/12/18 21:11 Dose: 81 mg Celecoxib (Celebrex) 200 mg PO DAILY [facility] Last Admin: 09/13/18 08:42 Dose: 200 mg Cholecalciferol (Vitamin D) 1,000 intlu PO DAILY [facility] Last Admin: 09/13/18 08:42 Dose: 1,000 intlu Home Med (Ascorbate Calcium/Bioflavonoid [Dariana-C 500 Mg Tablet]) 1 tab PO DAILY [facility] Home Med (Calcium Carb/Mag Oxide/Zinc Ox [[place]-Rfvphlzst-Rkrb Caplet]) 1 tab PO DAILY [facility] Home Med (Vitamin B Complex [Super B-50 Complex]) 1 cap PO DAILY [facility] Home Med (Patient's Own Medication) 1 unit PO DAILY@2220 [facility] Last Admin: 09/12/18 21:19 Dose: 1 unit Home Med (Patient's Own Medication) 5 unit PO DAILY [facility] Last Admin: 09/13/18 08:41 Dose: 5 unit Hydrochlorothiazide (Microzide) 12.5 mg PO Q48H [facility] Last Admin: 09/12/18 18:49 Dose: Not Given Vancomycin HCl 1 gm/ Sodium (Chloride) 250 mls @ 250 mls/hr IVPB Q12H [facility]; Protocol Last Admin: 09/13/18 07:17 Dose: Not Given Ampicillin Sodium/Sulbactam (Sodium 3 gm/ Sodium Chloride) 100 mls @ 100 mls/hr IVPB Q6H [facility]; Protocol Last Admin: 09/13/18 05:05 Dose: 100 mls/hr Montelukast Sodium (Singulair) 10 mg PO HS [facility] Last Admin: 09/12/18 21:11 Dose: 10 mg Multivitamins/Minerals (Therapeutic-M Tab) 1 tab PO DAILY [facility] Last Admin: 09/13/18 08:42 Dose: 1 tab - Labs Labs: 09/12/18 04:30 09/12/18 04:30 PT 10.8 Seconds (9.8-13.1) 09/10/18 12:38 INR 1.0 09/10/18 12:38 - Constitutional Appears: Well, Non-toxic, No Acute Distress - Head Exam Head Exam: ATRAUMATIC, NORMOCEPHALIC - Extremities Exam Additional comments: LLE focused exam: Vascular: DP/PT 2/4, Cap refill <3 seconds, mild edema to left ankle, TG WNL Neuro: Gross and protective sensation intact Derm: 5 cm x 2 cm wound to the posterior aspect of the heel, with no active drainage, granular base, no malodor, no erythema, no probe to bone, no tracking or tunneling noted. MSK: Tenderness on palpation of calf secondary to open wound, pain upon palpation of Achilles tendon, MMT 4/5 due to patient guarding. Palpable gap to left achilles tendon. - Neurological Exam Neurological Exam: Alert, Awake, Oriented x3 - Psychiatric Exam Psychiatric exam: Normal Affect, Normal Mood Assessment and Plan - Assessment and Plan (Free Text) Assessment: 78 y/o female seen and evaluated for Non healing left achilles wound with possible osteomyelitis Plan: Patient seen and evaluated at the bedside with dr. Mcconnell Plan discussed with Dr. Mcconnell. Chart, labs and vitals reviewed. Left heel dressed with telfa, DSD, ABD and SELVIN ID consult ordered; recommendations appreciated PICC line 6-8 weeks of IV antibiotics Foot/ankle MRI with/without contrast: osteomyelitis of the calcaneus Continue IV antibiotics Stable for discharge from podiatry point of view; Podiatry will continue to follow the patient while in house
--- NOTE | 2018-09-13 13:57 | CP.PCM.PN ---
Subjective - Date & Time of Evaluation Date of Evaluation: 09/13/18 Time of Evaluation: 08:00 - Subjective Subjective: remains bed bound in nad wound care in progress Objective - Vital Signs/Intake and Output Vital Signs (last 24 hours): Temp Pulse Resp BP Pulse Ox 97.5 F L 46 L 20 144/49 L 96 09/13/18 12:15 09/13/18 12:15 09/13/18 12:15 09/13/18 12:15 09/13/18 12:15 - Medications Medications: Current Medications Aspirin (Ecotrin) 81 mg PO HS [facility] Last Admin: 09/12/18 21:11 Dose: 81 mg Celecoxib (Celebrex) 200 mg PO DAILY [facility] Last Admin: 09/13/18 08:42 Dose: 200 mg Cholecalciferol (Vitamin D) 1,000 intlu PO DAILY [facility] Last Admin: 09/13/18 08:42 Dose: 1,000 intlu Home Med (Ascorbate Calcium/Bioflavonoid [Dariana-C 500 Mg Tablet]) 1 tab PO DAILY [facility] Home Med (Calcium Carb/Mag Oxide/Zinc Ox [Pcrlxir-Ylnadwjam-Jzwn Caplet]) 1 tab PO DAILY [facility] Home Med (Vitamin B Complex [Super B-50 Complex]) 1 cap PO DAILY [facility] Home Med (Patient's Own Medication) 1 unit PO DAILY@2220 [facility] Last Admin: 09/12/18 21:19 Dose: 1 unit Home Med (Patient's Own Medication) 5 unit PO DAILY [facility] Last Admin: 09/13/18 08:41 Dose: 5 unit Hydrochlorothiazide (Microzide) 12.5 mg PO Q48H [facility] Last Admin: 09/12/18 18:49 Dose: Not Given Vancomycin HCl 1 gm/ Sodium (Chloride) 250 mls @ 250 mls/hr IVPB Q12H [facility]; Protocol Last Admin: 09/13/18 07:17 Dose: Not Given Ampicillin Sodium/Sulbactam (Sodium 3 gm/ Sodium Chloride) 100 mls @ 100 mls/hr IVPB Q6H [facility]; Protocol Last Admin: 09/13/18 13:00 Dose: 100 mls/hr Montelukast Sodium (Singulair) 10 mg PO HS [facility] Last Admin: 09/12/18 21:11 Dose: 10 mg Multivitamins/Minerals (Therapeutic-M Tab) 1 tab PO DAILY [facility] Last Admin: 09/13/18 08:42 Dose: 1 tab - Labs Labs: 09/12/18 04:30 09/12/18 04:30 PT 10.8 Seconds (9.8-13.1) 09/10/18 12:38 INR 1.0 09/10/18 12:38 - Constitutional Appears: Non-toxic, Chronically Ill - Head Exam Head Exam: NORMOCEPHALIC - Eye Exam Eye Exam: absent: Scleral icterus - ENT Exam ENT Exam: Mucous Membranes Dry - Neck Exam Neck Exam: absent: Lymphadenopathy - Respiratory Exam Respiratory Exam: Decreased Breath Sounds - Cardiovascular Exam Cardiovascular Exam: REGULAR RHYTHM - GI/Abdominal Exam GI & Abdominal Exam: Distended, Soft. absent: Tenderness - Rectal Exam Rectal Exam: Deferred - Exam Exam: NORMAL INSPECTION - Extremities Exam Extremities Exam: Pedal Edema. absent: Calf Tenderness, Tenderness - Back Exam Back Exam: absent: CVA tenderness (L), CVA tenderness (R), paraspinal tenderness - Neurological Exam Neurological Exam: Alert, Awake, CN II-XII Intact, Oriented x3 Neuro motor strength exam: Left Upper Extremity: 4, Right Upper Extremity: 4, Left Lower Extremity: 4, Right Lower Extremity: 4 - Psychiatric Exam Psychiatric exam: Depressed - Skin Skin Exam: Dry Assessment and Plan (1) Osteomyelitis Status: Acute (2) CAD (coronary artery disease) Status: Acute (3) ESTELLE (obstructive sleep apnea) Status: Acute - Assessment and Plan (Free Text) Assessment: OM left heel with MDRO no options for once daily dosing cont empiric rx may need BHUPINDER
[2018-09-13] MEDS: BYSTOLIC 20 MG PO SCH (21:37)
--- NOTE | 2018-09-14 05:37 | CP.PCM.PN ---
Subjective - Date & Time of Evaluation Date of Evaluation: 09/14/18 Time of Evaluation: 05:36 - Subjective Subjective: Podiatry progress note for Dr. Mcconnell, 78 y/o female patient seen and evaluated at bedside at the bedside with dr. Mcconnell for Non healing left Achilles wound. Patient is AAOx3 and in NAD. Patient states that she is feeling better today and the allergy she had yesterday subsided. Patient denies any acute pedal complains. Denies any overnight N/F/V/SOB/CP. Objective - Vital Signs/Intake and Output Vital Signs (last 24 hours): Temp Pulse Resp BP Pulse Ox 97.4 F L 49 L 18 159/54 H 95 09/14/18 01:00 09/14/18 01:00 09/14/18 01:00 09/14/18 01:00 09/14/18 01:00 - Medications Medications: Current Medications Aspirin (Ecotrin) 81 mg PO HS [facility] Last Admin: 09/13/18 21:25 Dose: 81 mg Celecoxib (Celebrex) 200 mg PO DAILY [facility] Last Admin: 09/13/18 08:42 Dose: 200 mg Cholecalciferol (Vitamin D) 1,000 intlu PO DAILY [facility] Last Admin: 09/13/18 08:42 Dose: 1,000 intlu Home Med (Ascorbate Calcium/Bioflavonoid [Dariana-C 500 Mg Tablet]) 1 tab PO DAILY [facility] Home Med (Calcium Carb/Mag Oxide/Zinc Ox [Jqfymmi-Kdyvbrmrc-Izxo Caplet]) 1 tab PO DAILY [facility] Home Med (Vitamin B Complex [Super B-50 Complex]) 1 cap PO DAILY [facility] Home Med (Patient's Own Medication) 1 unit PO DAILY@2220 [facility] Last Admin: 09/13/18 21:37 Dose: 1 unit Home Med (Patient's Own Medication) 5 unit PO DAILY [facility] Last Admin: 09/13/18 08:41 Dose: 5 unit Hydrochlorothiazide (Microzide) 12.5 mg PO Q48H [facility] Last Admin: 09/12/18 18:49 Dose: Not Given Ampicillin Sodium/Sulbactam (Sodium 3 gm/ Sodium Chloride) 100 mls @ 100 mls/hr IVPB Q6H [facility]; Protocol Last Admin: 09/14/18 05:29 Dose: 100 mls/hr Vancomycin HCl 1 gm/ Sodium (Chloride) 250 mls @ 166.667 mls/hr IVPB Q12 [facility]; Protocol Last Admin: 09/13/18 21:26 Dose: 166.667 mls/hr Montelukast Sodium (Singulair) 10 mg PO HS [facility] Last Admin: 09/13/18 21:25 Dose: 10 mg Multivitamins/Minerals (Therapeutic-M Tab) 1 tab PO DAILY [facility] Last Admin: 09/13/18 08:42 Dose: 1 tab - Labs Labs: 09/12/18 04:30 09/12/18 04:30 PT 10.8 Seconds (9.8-13.1) 09/10/18 12:38 INR 1.0 09/10/18 12:38 - Constitutional Appears: Well, Non-toxic - Head Exam Head Exam: ATRAUMATIC - Extremities Exam Additional comments: LLE focused exam: Vascular: DP/PT 2/4, Cap refill <3 seconds, mild edema to left ankle, TG WNL Neuro: Gross and protective sensation intact Derm: 5 cm x 2 cm wound to the posterior aspect of the heel, with no active drainage, granular base, no malodor, no erythema, no probe to bone, no tracking or tunneling noted. MSK: Tenderness on palpation of calf secondary to open wound, pain upon palpation of Achilles tendon, MMT 4/5 due to patient guarding. Palpable gap to left achilles tendon. Assessment and Plan - Assessment and Plan (Free Text) Assessment: 78 y/o female seen and evaluated for Non healing left achilles wound with possible osteomyelitis Plan: Patient seen and evaluated at the bedside with dr. Mcconnell Plan discussed with Dr. Mcconnell. Chart, labs and vitals reviewed. Left heel dressed with telfa, DSD, ABD and SELVIN ID consult ordered; recommendations appreciated PICC line 6-8 weeks of IV antibiotics Foot/ankle MRI with/without contrast: osteomyelitis of the calcaneus Continue IV antibiotics Stable for discharge from podiatry point of view; Podiatry will continue to follow the patient while in house
[2018-09-14] MEDS: LEVOCETRIZINE PO SCH (09:18)
[2018-09-14] MEDS: Multivitamin With Minerals Tab PO SCH (09:18)
[2018-09-14] MEDS: Cholecalciferol 1,000 INTLU TAB PO SCH (09:18)
[2018-09-14 10:56] LABS: BASO % 0.6 % (0.0-2.0); EOS # 0.3 K/uL (0.0-0.7); EOS % 3.9 % (0.0-4.0); HEMOGLOBIN 12.6 g/dL (12.0-16.0); LYMPH # 1.5 K/uL (1.0-4.3); LYMPH % 20.5 % (20.0-40.0); MEAN CELL VOLUME 85.1 fl (81.0-99.0); MEAN CORPUSCULAR HEMOGLOBIN 28.1 pg (27.0-31.0); MEAN CORPUSCULAR HGB CONC 33.1 g/dL (33.0-37.0); MEAN PLATELET VOLUME 7.3 fl (7.2-11.7); MONO # 0.7 K/uL (0.0-0.8); MONO % 9.6 % (0.0-10.0); NEUT # 4.9 K/uL (1.8-7.0); NEUT % 65.4 % (50.0-75.0); NRBC % 0.2 % (0.0-0.0); RBC 4.49 Mil/uL (3.80-5.20); RED CELL DISTRIBUTION WIDTH 12.9 % (11.5-14.5); WHITE BLOOD COUNT 7.6 K/uL (4.8-10.8)
--- NOTE | 2018-09-14 10:56 | CP.PCM.PN ---
Subjective - Date & Time of Evaluation Date of Evaluation: 09/14/18 Time of Evaluation: 08:00 - Subjective Subjective: afeb await ins auth for IV rx at home Objective - Vital Signs/Intake and Output Vital Signs (last 24 hours): Temp Pulse Resp BP Pulse Ox 97.5 F L 55 L 18 150/84 95 09/14/18 08:02 09/14/18 09:00 09/14/18 08:02 09/14/18 08:02 09/14/18 08:02 - Medications Medications: Current Medications Aspirin (Ecotrin) 81 mg PO HS [facility] Last Admin: 09/13/18 21:25 Dose: 81 mg Celecoxib (Celebrex) 200 mg PO DAILY [facility] Last Admin: 09/14/18 09:18 Dose: 200 mg Cholecalciferol (Vitamin D) 1,000 intlu PO DAILY [facility] Last Admin: 09/14/18 09:18 Dose: 1,000 intlu Home Med (Ascorbate Calcium/Bioflavonoid [Dariana-C 500 Mg Tablet]) 1 tab PO DAILY [facility] Home Med (Calcium Carb/Mag Oxide/Zinc Ox [Hlpsdfw-Uziwwlzfx-Ndmf Caplet]) 1 tab PO DAILY [facility] Home Med (Vitamin B Complex [Super B-50 Complex]) 1 cap PO DAILY [facility] Home Med (Patient's Own Medication) 1 unit PO DAILY@2220 [facility] Last Admin: 09/13/18 21:37 Dose: 1 unit Home Med (Patient's Own Medication) 5 unit PO DAILY [facility] Last Admin: 09/14/18 09:18 Dose: 5 unit Hydrochlorothiazide (Microzide) 12.5 mg PO Q48H [facility] Last Admin: 09/12/18 18:49 Dose: Not Given Ampicillin Sodium/Sulbactam (Sodium 3 gm/ Sodium Chloride) 100 mls @ 100 mls/hr IVPB Q6H [facility]; Protocol Last Admin: 09/14/18 05:29 Dose: 100 mls/hr Vancomycin HCl 1 gm/ Sodium (Chloride) 250 mls @ 166.667 mls/hr IVPB Q12 [facility]; Protocol Last Admin: 09/13/18 21:26 Dose: 166.667 mls/hr Montelukast Sodium (Singulair) 10 mg PO HS [facility] Last Admin: 09/13/18 21:25 Dose: 10 mg Multivitamins/Minerals (Therapeutic-M Tab) 1 tab PO DAILY [facility] Last Admin: 09/14/18 09:18 Dose: 1 tab - Labs Labs: 09/12/18 04:30 09/12/18 04:30 PT 10.8 Seconds (9.8-13.1) 09/10/18 12:38 INR 1.0 09/10/18 12:38 - Constitutional Appears: Non-toxic, Chronically Ill - Head Exam Head Exam: NORMOCEPHALIC - Eye Exam Eye Exam: absent: Scleral icterus - ENT Exam ENT Exam: Mucous Membranes Dry - Neck Exam Neck Exam: absent: Lymphadenopathy - Respiratory Exam Respiratory Exam: Decreased Breath Sounds - Cardiovascular Exam Cardiovascular Exam: REGULAR RHYTHM - GI/Abdominal Exam GI & Abdominal Exam: Distended, Soft - Rectal Exam Rectal Exam: Deferred - Exam Exam: NORMAL INSPECTION - Extremities Exam Extremities Exam: absent: Pedal Edema - Back Exam Back Exam: absent: CVA tenderness (L), CVA tenderness (R) - Neurological Exam Neurological Exam: Alert, Awake, Oriented x3 - Psychiatric Exam Psychiatric exam: Depressed - Skin Skin Exam: Dry Assessment and Plan (1) Osteomyelitis Status: Acute (2) CAD (coronary artery disease) Status: Acute (3) ESTELLE (obstructive sleep apnea) Status: Acute - Assessment and Plan (Free Text) Assessment: cont iv rx for om
[2018-09-14 11:19] LABS: ALB/GLOB RATIO 1.2 (1.0-2.1); ALBUMIN 3.5 g/dL (3.5-5.0); ALT/SGPT 24 U/L (9-52); AST/SGOT 24 U/L (14-36); BLOOD UREA NITROGEN 18 mg/dl (7-17); CALCIUM 9.1 mg/dL (8.4-10.2); GFR NON-AFRICAN AMERICAN > 60
[2018-09-14] MEDS: BYSTOLIC 20 MG PO SCH (22:26)
--- NOTE | 2018-09-15 07:17 | CP.PCM.PN ---
Subjective - Date & Time of Evaluation Date of Evaluation: 09/15/18 Time of Evaluation: 07:16 - Subjective Subjective: Podiatry progress note for Dr. Mcconnell 78 y/o female patient seen and evaluated at bedside at the bedside with dr. Mcconnell for Non healing left Achilles wound. Patient is AAOx3 and in NAD. Patient states that she is feeling better today and the allergy she had yesterday subsided. Patient denies any acute pedal complains. Denies any overnight N/F/V/SOB/CP. Objective - Vital Signs/Intake and Output Vital Signs (last 24 hours): Temp Pulse Resp BP Pulse Ox 97.3 F L 47 L 20 170/68 H 98 09/15/18 05:17 09/15/18 05:30 09/15/18 05:17 09/15/18 05:30 09/15/18 05:17 - Medications Medications: Current Medications Aspirin (Ecotrin) 81 mg PO HS [facility] Last Admin: 09/14/18 22:25 Dose: 81 mg Celecoxib (Celebrex) 200 mg PO DAILY [facility] Last Admin: 09/14/18 09:18 Dose: 200 mg Cholecalciferol (Vitamin D) 1,000 intlu PO DAILY [facility] Last Admin: 09/14/18 09:18 Dose: 1,000 intlu Home Med (Ascorbate Calcium/Bioflavonoid [Dariana-C 500 Mg Tablet]) 1 tab PO DAILY [facility] Home Med (Calcium Carb/Mag Oxide/Zinc Ox [Cbmqbzq-Tfnmwgxez-Lnsd Caplet]) 1 tab PO DAILY [facility] Home Med (Vitamin B Complex [Super B-50 Complex]) 1 cap PO DAILY [facility] Home Med (Patient's Own Medication) 1 unit PO DAILY@2220 [facility] Last Admin: 09/14/18 22:26 Dose: 1 unit Home Med (Patient's Own Medication) 1 unit PO DAILY [facility] Hydrochlorothiazide (Microzide) 12.5 mg PO Q48H [facility] Ampicillin Sodium/Sulbactam (Sodium 3 gm/ Sodium Chloride) 100 mls @ 100 mls/hr IVPB Q6H [facility]; Protocol Last Admin: 09/15/18 05:40 Dose: 100 mls/hr Vancomycin HCl 1 gm/ Sodium (Chloride) 250 mls @ 166.667 mls/hr IVPB Q12 [facility]; Protocol Last Admin: 09/14/18 22:25 Dose: 166.667 mls/hr Montelukast Sodium (Singulair) 10 mg PO HS [facility] Last Admin: 09/14/18 22:26 Dose: 10 mg Multivitamins/Minerals (Therapeutic-M Tab) 1 tab PO DAILY [facility] Last Admin: 09/14/18 09:18 Dose: 1 tab Tramadol HCl (Ultram) 50 mg PO Q6 PRN PRN Reason: Pain, moderate (4-7) Last Admin: 09/14/18 23:32 Dose: 50 mg - Labs Labs: 09/14/18 10:46 09/14/18 10:46 PT 10.8 Seconds (9.8-13.1) 09/10/18 12:38 INR 1.0 09/10/18 12:38 - Extremities Exam Additional comments: LLE focused exam: Vascular: DP/PT 2/4, Cap refill <3 seconds, mild edema to left ankle, TG WNL Neuro: Gross and protective sensation intact Derm: 5 cm x 2 cm wound to the posterior aspect of the heel, with no active drainage, granular base, no malodor, no erythema, no probe to bone, no tracking or tunneling noted. MSK: Tenderness on palpation of calf secondary to open wound, pain upon palpation of Achilles tendon, MMT 4/5 due to patient guarding. Palpable gap to left achilles tendon. Assessment and Plan - Assessment and Plan (Free Text) Assessment: 78 y/o female seen and evaluated for Non healing left achilles wound with osteomyelitis of the calcaneus Plan: Patient seen and evaluated at the bedside with dr. Mcconnell Plan discussed with Dr. Mcconnell. Chart, labs and vitals reviewed. Left heel dressed with telfa, DSD, ABD and SELVIN ID consult ordered; recommendations appreciated PICC line 6-8 weeks of IV antibiotics Foot/ankle MRI with/without contrast: osteomyelitis of the calcaneus Continue IV antibiotics Stable for discharge from podiatry point of view; Podiatry will continue to follow the patient while in house
[2018-09-15] MEDS: LEVOCETRIZINE PO SCH (10:02)
[2018-09-15] MEDS: Multivitamin With Minerals Tab PO SCH (10:03)
[2018-09-15] MEDS: Cholecalciferol 1,000 INTLU TAB PO SCH (10:11)
--- NOTE | 2018-09-15 12:47 | CP.PCM.PCO ---
Assessment & Plan - Assessment and Plan (Free Text) Assessment: pt. seen and examined; feels well this morning; denies sob, cp, fever, chills patient is in agreeable to [facility]UPIND[facility] pt. will require 5 more weeks of Unasyn 3 gm q6 ivpd and VAncomycin 1 gm q12 as per recommendation REECE Kaur notified to d/w pt.
[2018-09-15] MEDS ORDERED: Enoxaparin 40 mg Syringe SC SCH (13:45)
[2018-09-15] MEDS ORDERED: Enoxaparin 40 mg Syringe SC ONE (13:45)
--- NOTE | 2018-09-15 15:44 | CP.PCM.PN ---
Subjective - Date & Time of Evaluation Date of Evaluation: 09/15/18 Time of Evaluation: 09:00 - Subjective Subjective: improving' less pain Objective - Vital Signs/Intake and Output Vital Signs (last 24 hours): Temp Pulse Resp BP Pulse Ox 98.0 F 50 L 18 165/66 H 96 09/15/18 12:55 09/15/18 12:55 09/15/18 12:55 09/15/18 12:55 09/15/18 12:55 - Medications Medications: Current Medications Aspirin (Ecotrin) 81 mg PO HS [facility] Last Admin: 09/14/18 22:25 Dose: 81 mg Celecoxib (Celebrex) 200 mg PO DAILY [facility] Last Admin: 09/15/18 10:12 Dose: 200 mg Cholecalciferol (Vitamin D) 1,000 intlu PO DAILY [facility] Last Admin: 09/15/18 10:11 Dose: 1,000 intlu Enoxaparin Sodium (Lovenox) 50 mg SC DAILY [facility]; Protocol Home Med (Ascorbate Calcium/Bioflavonoid [Dariana-C 500 Mg Tablet]) 1 tab PO DAILY [facility] Home Med (Calcium Carb/Mag Oxide/Zinc Ox [Kttqixe-Dbdnponcm-Rinc Caplet]) 1 tab PO DAILY [facility] Home Med (Vitamin B Complex [Super B-50 Complex]) 1 cap PO DAILY [facility] Home Med (Patient's Own Medication) 1 unit PO DAILY@2220 [facility] Last Admin: 09/14/18 22:26 Dose: 1 unit Home Med (Patient's Own Medication) 1 unit PO DAILY [facility] Last Admin: 09/15/18 10:02 Dose: 1 unit Hydrochlorothiazide (Microzide) 12.5 mg PO Q48H [facility] Last Admin: 09/15/18 10:03 Dose: 12.5 mg Ampicillin Sodium/Sulbactam (Sodium 3 gm/ Sodium Chloride) 100 mls @ 100 mls/hr IVPB Q6H [facility]; Protocol Last Admin: 09/15/18 12:57 Dose: 100 mls/hr Vancomycin HCl 1 gm/ Sodium (Chloride) 250 mls @ 166.667 mls/hr IVPB Q12 [facility]; Protocol Last Admin: 09/15/18 10:24 Dose: 166.667 mls/hr Montelukast Sodium (Singulair) 10 mg PO HS [facility] Last Admin: 09/14/18 22:26 Dose: 10 mg Multivitamins/Minerals (Therapeutic-M Tab) 1 tab PO DAILY [facility] Last Admin: 09/15/18 10:03 Dose: 1 tab Tramadol HCl (Ultram) 50 mg PO Q6 PRN PRN Reason: Pain, moderate (4-7) Last Admin: 09/14/18 23:32 Dose: 50 mg - Labs Labs: 09/14/18 10:46 09/14/18 10:46 PT 10.8 Seconds (9.8-13.1) 09/10/18 12:38 INR 1.0 09/10/18 12:38 - Constitutional Appears: Non-toxic, Chronically Ill - Head Exam Head Exam: ATRAUMATIC, NORMOCEPHALIC - Eye Exam Eye Exam: PERRL. absent: Scleral icterus - ENT Exam ENT Exam: Mucous Membranes Dry - Neck Exam Neck Exam: absent: Lymphadenopathy - Respiratory Exam Respiratory Exam: Decreased Breath Sounds, Clear to Ausculation Bilateral - Cardiovascular Exam Cardiovascular Exam: REGULAR RHYTHM, +S1, +S2 - GI/Abdominal Exam GI & Abdominal Exam: Distended, Soft. absent: Tenderness - Rectal Exam Rectal Exam: Deferred - Exam Exam: NORMAL INSPECTION - Extremities Exam Extremities Exam: absent: Pedal Edema - Back Exam Back Exam: absent: CVA tenderness (L), CVA tenderness (R) - Neurological Exam Neurological Exam: Alert, Awake, CN II-XII Intact, Oriented x3 Neuro motor strength exam: Left Upper Extremity: 4, Right Upper Extremity: 4, Left Lower Extremity: 4, Right Lower Extremity: 4 - Psychiatric Exam Psychiatric exam: Depressed - Skin Skin Exam: Dry, Intact Assessment and Plan (1) Osteomyelitis Status: Acute (2) CAD (coronary artery disease) Status: Acute (3) ESTELLE (obstructive sleep apnea) Status: Acute - Assessment and Plan (Free Text) Assessment: cont iv rx and wound care for 6 months
[2018-09-15] MEDS: Enoxaparin 60 mg Syringe SC SCH (17:27)
[2018-09-15] MEDS: BYSTOLIC 20 MG PO SCH ×2 (21:25→21:26)
--- NOTE | 2018-09-16 00:04 | CP.PCM.PN ---
Subjective - Date & Time of Evaluation Date of Evaluation: 09/13/18 Objective - Vital Signs/Intake and Output Vital Signs (last 24 hours): Temp Pulse Resp BP Pulse Ox 97.9 F 56 L 16 162/62 H 95 09/15/18 19:55 09/15/18 19:55 09/15/18 19:55 09/15/18 19:55 09/15/18 19:55 Intake and Output: 09/15/18 09/16/18 18:59 06:59 Intake Total 1450 Balance 1450 - Medications Medications: Current Medications Aspirin (Ecotrin) 81 mg PO HS [facility] Last Admin: 09/15/18 21:25 Dose: 81 mg Celecoxib (Celebrex) 200 mg PO DAILY [facility] Last Admin: 09/15/18 10:12 Dose: 200 mg Cholecalciferol (Vitamin D) 1,000 intlu PO DAILY [facility] Last Admin: 09/15/18 10:11 Dose: 1,000 intlu Enoxaparin Sodium (Lovenox) 50 mg SC DAILY [facility]; Protocol Last Admin: 09/15/18 17:27 Dose: Not Given Home Med (Ascorbate Calcium/Bioflavonoid [Dariana-C 500 Mg Tablet]) 1 tab PO DAILY [facility] Home Med (Calcium Carb/Mag Oxide/Zinc Ox [Xjcdyti-Jlsrrorgz-Uhuo Caplet]) 1 tab PO DAILY [facility] Home Med (Vitamin B Complex [Super B-50 Complex]) 1 cap PO DAILY [facility] Home Med (Patient's Own Medication) 1 unit PO DAILY@2220 [facility] Last Admin: 09/15/18 21:26 Dose: 1 unit Home Med (Patient's Own Medication) 1 unit PO DAILY [facility] Last Admin: 09/15/18 10:02 Dose: 1 unit Hydrochlorothiazide (Microzide) 12.5 mg PO Q48H [facility] Last Admin: 09/15/18 10:03 Dose: 12.5 mg Ampicillin Sodium/Sulbactam (Sodium 3 gm/ Sodium Chloride) 100 mls @ 100 mls/hr IVPB Q6H [facility]; Protocol Last Admin: 09/15/18 23:26 Dose: 100 mls/hr Vancomycin HCl 1 gm/ Sodium (Chloride) 250 mls @ 166.667 mls/hr IVPB Q12 [facility]; Protocol Last Admin: 09/15/18 20:45 Dose: 166.667 mls/hr Montelukast Sodium (Singulair) 10 mg PO HS [facility] Last Admin: 09/15/18 21:24 Dose: 10 mg Multivitamins/Minerals (Therapeutic-M Tab) 1 tab PO DAILY [facility] Last Admin: 09/15/18 10:03 Dose: 1 tab Tramadol HCl (Ultram) 50 mg PO Q6 PRN PRN Reason: Pain, moderate (4-7) Last Admin: 09/15/18 21:30 Dose: 50 mg - Labs Labs: 09/14/18 10:46 09/14/18 10:46 PT 10.8 Seconds (9.8-13.1) 09/10/18 12:38 INR 1.0 09/10/18 12:38 Assessment and Plan (1) Osteomyelitis Status: Acute (2) Rupture of left Achilles tendon Status: Acute (3) CAD (coronary artery disease) Status: Acute (4) Mild intermittent asthma Status: Acute (5) Hypertension Status: Chronic
--- NOTE | 2018-09-16 00:09 | CP.PCM.PN ---
Subjective - Date & Time of Evaluation Date of Evaluation: 09/14/18 Time of Evaluation: 18:10 Objective - Vital Signs/Intake and Output Vital Signs (last 24 hours): Temp Pulse Resp BP Pulse Ox 97.9 F 56 L 16 162/62 H 95 09/15/18 19:55 09/15/18 19:55 09/15/18 19:55 09/15/18 19:55 09/15/18 19:55 Intake and Output: 09/15/18 09/16/18 18:59 06:59 Intake Total 1450 Balance 1450 - Medications Medications: Current Medications Aspirin (Ecotrin) 81 mg PO HS [facility] Last Admin: 09/15/18 21:25 Dose: 81 mg Celecoxib (Celebrex) 200 mg PO DAILY [facility] Last Admin: 09/15/18 10:12 Dose: 200 mg Cholecalciferol (Vitamin D) 1,000 intlu PO DAILY [facility] Last Admin: 09/15/18 10:11 Dose: 1,000 intlu Enoxaparin Sodium (Lovenox) 50 mg SC DAILY [facility]; Protocol Last Admin: 09/15/18 17:27 Dose: Not Given Home Med (Ascorbate Calcium/Bioflavonoid [Dariana-C 500 Mg Tablet]) 1 tab PO DAILY [facility] Home Med (Calcium Carb/Mag Oxide/Zinc Ox [Inpkjmm-Tpbpkgobv-Kcdm Caplet]) 1 tab PO DAILY [facility] Home Med (Vitamin B Complex [Super B-50 Complex]) 1 cap PO DAILY [facility] Home Med (Patient's Own Medication) 1 unit PO DAILY@2220 [facility] Last Admin: 09/15/18 21:26 Dose: 1 unit Home Med (Patient's Own Medication) 1 unit PO DAILY [facility] Last Admin: 09/15/18 10:02 Dose: 1 unit Hydrochlorothiazide (Microzide) 12.5 mg PO Q48H [facility] Last Admin: 09/15/18 10:03 Dose: 12.5 mg Ampicillin Sodium/Sulbactam (Sodium 3 gm/ Sodium Chloride) 100 mls @ 100 mls/hr IVPB Q6H [facility]; Protocol Last Admin: 09/15/18 23:26 Dose: 100 mls/hr Vancomycin HCl 1 gm/ Sodium (Chloride) 250 mls @ 166.667 mls/hr IVPB Q12 [facility]; Protocol Last Admin: 09/15/18 20:45 Dose: 166.667 mls/hr Montelukast Sodium (Singulair) 10 mg PO HS [facility] Last Admin: 09/15/18 21:24 Dose: 10 mg Multivitamins/Minerals (Therapeutic-M Tab) 1 tab PO DAILY [facility] Last Admin: 09/15/18 10:03 Dose: 1 tab Tramadol HCl (Ultram) 50 mg PO Q6 PRN PRN Reason: Pain, moderate (4-7) Last Admin: 09/15/18 21:30 Dose: 50 mg - Labs Labs: 09/14/18 10:46 09/14/18 10:46 PT 10.8 Seconds (9.8-13.1) 09/10/18 12:38 INR 1.0 09/10/18 12:38 Assessment and Plan (1) Osteomyelitis Status: Acute (2) Rupture of left Achilles tendon Status: Acute (3) CAD (coronary artery disease) Status: Acute (4) Mild intermittent asthma Status: Acute (5) Hypertension Status: Chronic
--- NOTE | 2018-09-16 00:10 | CP.PCM.PN ---
Subjective - Date & Time of Evaluation Date of Evaluation: 09/15/18 Time of Evaluation: 17:50 Objective - Vital Signs/Intake and Output Vital Signs (last 24 hours): Temp Pulse Resp BP Pulse Ox 97.9 F 56 L 16 162/62 H 95 09/15/18 19:55 09/15/18 19:55 09/15/18 19:55 09/15/18 19:55 09/15/18 19:55 Intake and Output: 09/15/18 09/16/18 18:59 06:59 Intake Total 1450 Balance 1450 - Medications Medications: Current Medications Aspirin (Ecotrin) 81 mg PO HS [facility] Last Admin: 09/15/18 21:25 Dose: 81 mg Celecoxib (Celebrex) 200 mg PO DAILY [facility] Last Admin: 09/15/18 10:12 Dose: 200 mg Cholecalciferol (Vitamin D) 1,000 intlu PO DAILY [facility] Last Admin: 09/15/18 10:11 Dose: 1,000 intlu Enoxaparin Sodium (Lovenox) 50 mg SC DAILY [facility]; Protocol Last Admin: 09/15/18 17:27 Dose: Not Given Home Med (Ascorbate Calcium/Bioflavonoid [Dariana-C 500 Mg Tablet]) 1 tab PO DAILY [facility] Home Med (Calcium Carb/Mag Oxide/Zinc Ox [Mwthlgv-Jdaixyume-Uqex Caplet]) 1 tab PO DAILY [facility] Home Med (Vitamin B Complex [Super B-50 Complex]) 1 cap PO DAILY [facility] Home Med (Patient's Own Medication) 1 unit PO DAILY@2220 [facility] Last Admin: 09/15/18 21:26 Dose: 1 unit Home Med (Patient's Own Medication) 1 unit PO DAILY [facility] Last Admin: 09/15/18 10:02 Dose: 1 unit Hydrochlorothiazide (Microzide) 12.5 mg PO Q48H [facility] Last Admin: 09/15/18 10:03 Dose: 12.5 mg Ampicillin Sodium/Sulbactam (Sodium 3 gm/ Sodium Chloride) 100 mls @ 100 mls/hr IVPB Q6H [facility]; Protocol Last Admin: 09/15/18 23:26 Dose: 100 mls/hr Vancomycin HCl 1 gm/ Sodium (Chloride) 250 mls @ 166.667 mls/hr IVPB Q12 [facility]; Protocol Last Admin: 09/15/18 20:45 Dose: 166.667 mls/hr Montelukast Sodium (Singulair) 10 mg PO HS [facility] Last Admin: 09/15/18 21:24 Dose: 10 mg Multivitamins/Minerals (Therapeutic-M Tab) 1 tab PO DAILY [facility] Last Admin: 09/15/18 10:03 Dose: 1 tab Tramadol HCl (Ultram) 50 mg PO Q6 PRN PRN Reason: Pain, moderate (4-7) Last Admin: 09/15/18 21:30 Dose: 50 mg - Labs Labs: 09/14/18 10:46 09/14/18 10:46 PT 10.8 Seconds (9.8-13.1) 09/10/18 12:38 INR 1.0 09/10/18 12:38 Assessment and Plan (1) Osteomyelitis Status: Acute (2) Rupture of left Achilles tendon Status: Acute (3) CAD (coronary artery disease) Status: Acute (4) Mild intermittent asthma Status: Acute (5) Hypertension Status: Chronic
[2018-09-16 00:36] VITALS: RESP 18
[2018-09-16] MEDS: Enoxaparin 60 mg Syringe SC SCH ×2 (08:49→08:53)
[2018-09-16] MEDS: LEVOCETRIZINE PO SCH (08:49)
[2018-09-16] MEDS: Cholecalciferol 1,000 INTLU TAB PO SCH (08:49)
[2018-09-16] MEDS: Multivitamin With Minerals Tab PO SCH (08:49)
--- NOTE | 2018-09-16 10:04 | CP.PCM.PN ---
Subjective - Date & Time of Evaluation Date of Evaluation: 09/16/18 Time of Evaluation: 10:02 - Subjective Subjective: Podiatry progress note for Dr. Mcconnell 78 y/o female patient seen and evaluated at bedside at the bedside with Dr. Mcconnell for Non healing left Achilles wound. Patient is AAOx3 and in NAD. Patient states that she is feeling better today. Patient denies any acute pedal complains. Denies any overnight N/F/V/SOB/CP. Objective - Vital Signs/Intake and Output Vital Signs (last 24 hours): Temp Pulse Resp BP Pulse Ox 97.5 F L 55 L 18 169/63 H 96 09/16/18 07:43 09/16/18 09:00 09/16/18 07:43 09/16/18 07:43 09/16/18 07:43 - Medications Medications: Current Medications Aspirin (Ecotrin) 81 mg PO HS [facility] Last Admin: 09/15/18 21:25 Dose: 81 mg Celecoxib (Celebrex) 200 mg PO DAILY [facility] Last Admin: 09/16/18 08:49 Dose: 200 mg Cholecalciferol (Vitamin D) 1,000 intlu PO DAILY [facility] Last Admin: 09/16/18 08:49 Dose: 1,000 intlu Enoxaparin Sodium (Lovenox) 50 mg SC DAILY [facility]; Protocol Last Admin: 09/16/18 08:53 Dose: Not Given Home Med (Ascorbate Calcium/Bioflavonoid [Dariana-C 500 Mg Tablet]) 1 tab PO DAILY [facility] Home Med (Calcium Carb/Mag Oxide/Zinc Ox [Zcejuis-Dsbaeplqf-Qdqc Caplet]) 1 tab PO DAILY [facility] Home Med (Vitamin B Complex [Super B-50 Complex]) 1 cap PO DAILY [facility] Home Med (Patient's Own Medication) 1 unit PO DAILY@2220 [facility] Last Admin: 09/15/18 21:26 Dose: 1 unit Home Med (Patient's Own Medication) 1 unit PO DAILY [facility] Last Admin: 09/16/18 08:49 Dose: 1 unit Hydrochlorothiazide (Microzide) 12.5 mg PO Q48H [facility] Last Admin: 09/15/18 10:03 Dose: 12.5 mg Ampicillin Sodium/Sulbactam (Sodium 3 gm/ Sodium Chloride) 100 mls @ 100 mls/hr IVPB Q6H [facility]; Protocol Last Admin: 09/16/18 05:12 Dose: 100 mls/hr Vancomycin HCl 1 gm/ Sodium (Chloride) 250 mls @ 166.667 mls/hr IVPB Q12 [facility]; Protocol Last Admin: 09/16/18 09:50 Dose: 166.667 mls/hr Montelukast Sodium (Singulair) 10 mg PO HS [facility] Last Admin: 09/15/18 21:24 Dose: 10 mg Multivitamins/Minerals (Therapeutic-M Tab) 1 tab PO DAILY [facility] Last Admin: 09/16/18 08:49 Dose: 1 tab Tramadol HCl (Ultram) 50 mg PO Q6 PRN PRN Reason: Pain, moderate (4-7) Last Admin: 09/15/18 21:30 Dose: 50 mg - Labs Labs: 09/14/18 10:46 09/14/18 10:46 PT 10.8 Seconds (9.8-13.1) 09/10/18 12:38 INR 1.0 09/10/18 12:38 - Constitutional Appears: Well, Non-toxic, No Acute Distress - Head Exam Head Exam: ATRAUMATIC - Extremities Exam Additional comments: LLE focused exam: Vascular: DP/PT 2/4, Cap refill <3 seconds, mild edema to left ankle, TG WNL Neuro: Gross and protective sensation intact Derm: 5 cm x 2 cm wound to the posterior aspect of the heel, with no active drainage, granular base, no malodor, no erythema, no probe to bone, no tracking or tunneling noted. MSK: Tenderness on palpation of calf secondary to open wound, pain upon palpation of Achilles tendon, MMT 4/5 due to patient guarding. Palpable gap to left achilles tendon. - Neurological Exam Neurological Exam: Alert, Awake, Oriented x3 Assessment and Plan - Assessment and Plan (Free Text) Assessment: 78 y/o female seen and evaluated for Non healing left achilles wound with osteomyelitis of the calcaneus Plan: Patient seen and evaluated at the bedside with dr. Mcconnell Plan discussed with Dr. Mcconnell. Chart, labs and vitals reviewed. Left heel dressed with telfa, DSD, ABD and SELVIN ID consult ordered; recommendations appreciated PICC line 6-8 weeks of IV antibiotics Foot/ankle MRI with/without contrast: osteomyelitis of the calcaneus Continue IV antibiotics Stable for discharge from podiatry point of view; Podiatry will continue to follow the patient while in house
[2018-09-16 12:24] VITALS: BP 181/69; PULSE 54; TEMP 98.1; O2SAT 97
--- NOTE | 2018-09-16 13:23 | CP.PCM.PN ---
Subjective - Date & Time of Evaluation Date of Evaluation: 09/16/18 Time of Evaluation: 08:00 - Subjective Subjective: events noted Vanco renewed Objective - Vital Signs/Intake and Output Vital Signs (last 24 hours): Temp Pulse Resp BP Pulse Ox 98.1 F 54 L 18 181/69 H 97 09/16/18 12:23 09/16/18 12:23 09/16/18 12:23 09/16/18 12:23 09/16/18 12:23 - Medications Medications: Current Medications Aspirin (Ecotrin) 81 mg PO HS [facility] Last Admin: 09/15/18 21:25 Dose: 81 mg Celecoxib (Celebrex) 200 mg PO DAILY [facility] Last Admin: 09/16/18 08:49 Dose: 200 mg Cholecalciferol (Vitamin D) 1,000 intlu PO DAILY [facility] Last Admin: 09/16/18 08:49 Dose: 1,000 intlu Diphenhydramine HCl (Benadryl) 25 mg PO Q6 PRN PRN Reason: Allergy symptoms Enoxaparin Sodium (Lovenox) 50 mg SC DAILY [facility]; Protocol Last Admin: 09/16/18 08:53 Dose: Not Given Home Med (Ascorbate Calcium/Bioflavonoid [Dariana-C 500 Mg Tablet]) 1 tab PO DAILY [facility] Home Med (Calcium Carb/Mag Oxide/Zinc Ox [Wrbzbfl-Tentsdqxt-Pdwd Caplet]) 1 tab PO DAILY [facility] Home Med (Vitamin B Complex [Super B-50 Complex]) 1 cap PO DAILY [facility] Home Med (Patient's Own Medication) 1 unit PO DAILY@2220 [facility] Last Admin: 09/15/18 21:26 Dose: 1 unit Home Med (Patient's Own Medication) 1 unit PO DAILY [facility] Last Admin: 09/16/18 08:49 Dose: 1 unit Hydrochlorothiazide (Microzide) 12.5 mg PO Q48H [facility] Last Admin: 09/15/18 10:03 Dose: 12.5 mg Ampicillin Sodium/Sulbactam (Sodium 3 gm/ Sodium Chloride) 100 mls @ 100 mls/hr IVPB Q6H [facility]; Protocol Last Admin: 09/16/18 12:41 Dose: 100 mls/hr Vancomycin HCl 1 gm/ Sodium (Chloride) 250 mls @ 166.667 mls/hr IVPB Q12 [facility]; Protocol Last Admin: 09/16/18 09:50 Dose: 166.667 mls/hr Montelukast Sodium (Singulair) 10 mg PO HS [facility] Last Admin: 09/15/18 21:24 Dose: 10 mg Multivitamins/Minerals (Therapeutic-M Tab) 1 tab PO DAILY [facility] Last Admin: 09/16/18 08:49 Dose: 1 tab Tramadol HCl (Ultram) 50 mg PO Q6 PRN PRN Reason: Pain, moderate (4-7) Last Admin: 09/16/18 12:40 Dose: 50 mg - Labs Labs: 09/14/18 10:46 09/14/18 10:46 PT 10.8 Seconds (9.8-13.1) 09/10/18 12:38 INR 1.0 09/10/18 12:38 - Constitutional Appears: Well - Head Exam Head Exam: ATRAUMATIC, NORMAL INSPECTION, NORMOCEPHALIC - Eye Exam Eye Exam: EOMI, Normal appearance, PERRL Pupil Exam: NORMAL ACCOMODATION, PERRL - ENT Exam ENT Exam: Mucous Membranes Moist, Normal Exam - Neck Exam Neck Exam: Full ROM, Normal Inspection. absent: Lymphadenopathy - Respiratory Exam Respiratory Exam: Clear to Ausculation Bilateral, NORMAL BREATHING PATTERN - Cardiovascular Exam Cardiovascular Exam: REGULAR RHYTHM, +S1, +S2. absent: Murmur - GI/Abdominal Exam GI & Abdominal Exam: Soft, Normal Bowel Sounds. absent: Tenderness - Rectal Exam Rectal Exam: Deferred - Extremities Exam Extremities Exam: Full ROM, Normal Capillary Refill, Normal Inspection. absent: Joint Swelling, Pedal Edema - Back Exam Back Exam: NORMAL INSPECTION - Neurological Exam Neurological Exam: Alert, Awake, CN II-XII Intact, Normal Gait, Oriented x3 - Psychiatric Exam Psychiatric exam: Normal Affect, Normal Mood - Skin Skin Exam: Dry, Intact, Normal Color, Warm Assessment and Plan (1) Osteomyelitis Status: Acute (2) CAD (coronary artery disease) Status: Acute (3) ESTELLE (obstructive sleep apnea) Status: Acute - Assessment and Plan (Free Text) Assessment: cont rx OM
--- NOTE | 2018-09-17 09:25 | CP.PCM.DIS ---
Provider - Provider Date of Admission: 09/08/18 14:26 Attending physician: Patricia Kang MD Consults: 09/09/18 10:00 Nursing Referral for Wound Care Routine Comment: Physician Instructions: Reason For Exam: Lower ext discoloration 09/09/18 13:15 Infectious Disease Consult Routine Comment: Consulting Provider: Antonio Nagel Consulting Physician: Antonio Nagel Reason for Consult: L foot cellulitis Time Spent in preparation of Discharge (in minutes): 25 Diagnosis - Discharge Diagnosis (1) Osteomyelitis Status: Acute Priority: High (2) Rupture of left Achilles tendon Status: Acute Priority: High (3) CAD (coronary artery disease) Status: Acute Priority: Low (4) Mild intermittent asthma Status: Acute Priority: Low (5) Hypertension Status: Chronic Priority: Low Hospital Course - Lab Results Lab Results: Micro Results 09/08/18 16:00 Blood-Venous Blood Culture - Final NO GROWTH AFTER 5 DAYS 09/08/18 16:00 Blood-Venous Gram Stain - Final TEST NOT PERFORMED 09/08/18 14:04 Blood-Venous Blood Culture - Final NO GROWTH AFTER 5 DAYS 09/08/18 14:04 Blood-Venous Gram Stain - Final TEST NOT PERFORMED 09/08/18 14:40 Urine,Clean Catch Urine Culture - Final Gram Negative Melvin Most Recent Lab Values WBC 7.6 K/uL (4.8-10.8) 09/14/18 10:46 RBC 4.49 Mil/uL (3.80-5.20) 09/14/18 10:46 Hgb 12.6 g/dL (12.0-16.0) 09/14/18 10:46 Hct 38.2 % (34.0-47.0) 09/14/18 10:46 MCV 85.1 fl (81.0-99.0) 09/14/18 10:46 MCH 28.1 pg (27.0-31.0) 09/14/18 10:46 MCHC 33.1 g/dL (33.0-37.0) 09/14/18 10:46 RDW 12.9 % (11.5-14.5) 09/14/18 10:46 Plt Count 209 K/uL (130-400) 09/14/18 10:46 MPV 7.3 fl (7.2-11.7) 09/14/18 10:46 Neut % (Auto) 65.4 % (50.0-75.0) 09/14/18 10:46 Lymph % (Auto) 20.5 % (20.0-40.0) 09/14/18 10:46 [place] % (Auto) 9.6 % (0.0-10.0) 09/14/18 10:46 Eos % (Auto) 3.9 % (0.0-4.0) 09/14/18 10:46 Baso % (Auto) 0.6 % (0.0-2.0) 09/14/18 10:46 Neut # (Auto) 4.9 K/uL (1.8-7.0) 09/14/18 10:46 Lymph # (Auto) 1.5 K/uL (1.0-4.3) 09/14/18 10:46 [place] # (Auto) 0.7 K/uL (0.0-0.8) 09/14/18 10:46 Eos # (Auto) 0.3 K/uL (0.0-0.7) 09/14/18 10:46 Baso # (Auto) 0.0 K/uL (0.0-0.2) 09/14/18 10:46 ESR 34 mm/hr (0-30) H 09/10/18 04:45 PT 10.8 Seconds (9.8-13.1) 09/10/18 12:38 INR 1.0 09/10/18 12:38 pO2 61 mm/Hg (30-55) H 09/08/18 14:04 VBG pH 7.41 (7.32-7.43) 09/08/18 14:04 VBG pCO2 41 mmHg (40-60) 09/08/18 14:04 VBG HCO3 25.7 mmol/L 09/08/18 14:04 VBG Total CO2 27.3 mmol/L (22-28) 09/08/18 14:04 VBG O2 Sat (Calc) 96.3 % (40-65) H 09/08/18 14:04 VBG Base Excess 1.2 mmol/L (0.0-2.0) 09/08/18 14:04 VBG Potassium 4.3 mmol/L (3.6-5.2) 09/08/18 14:04 Sodium 137.0 mmol/L (132-148) 09/08/18 14:04 Chloride 108.0 mmol/L (98-107) H 09/08/18 14:04 Glucose 91 mg/dL (65-105) 09/08/18 14:04 Lactate 1.2 mmol/L (0.7-2.1) 09/08/18 14:04 FiO2 21.0 % 09/08/18 14:04 Sodium 139 mmol/l (132-148) 09/14/18 10:46 Potassium 4.0 MMOL/L (3.6-5.0) 09/14/18 10:46 Chloride 100 mmol/L (98-107) 09/14/18 10:46 Carbon Dioxide 28 mmol/L (22-30) 09/14/18 10:46 Anion Gap 15 (10-20) 09/14/18 10:46 BUN 18 mg/dl (7-17) H 09/14/18 10:46 Creatinine 0.8 mg/dl (0.7-1.2) 09/14/18 10:46 Est GFR ( Amer) > 60 09/14/18 10:46 Est GFR (Non-Af Amer) > 60 09/14/18 10:46 Random Glucose 122 mg/dL (65-105) H 09/14/18 10:46 Hemoglobin A1c 5.1 % (4.2-6.5) 09/10/18 04:45 Calcium 9.1 mg/dL (8.4-10.2) 09/14/18 10:46 Total Bilirubin 0.3 mg/dl (0.2-1.3) 09/14/18 10:46 AST 24 U/L (14-36) 09/14/18 10:46 ALT 24 U/L (9-52) 09/14/18 10:46 Alkaline Phosphatase 48 U/L (38-126) 09/14/18 10:46 C-Reactive Protein 5.80 mg/L (0.0-9.9) 09/10/18 04:45 Total Protein 6.5 G/DL (6.3-8.2) 09/14/18 10:46 Albumin 3.5 g/dL (3.5-5.0) 09/14/18 10:46 Globulin 3.0 gm/dL (2.2-3.9) 09/14/18 10:46 Albumin/Globulin Ratio 1.2 (1.0-2.1) 09/14/18 10:46 Procalcitonin < 0.05 NG/ML (0.19-0.49) L 09/14/18 10:46 Venous Blood Potassium 4.3 mmol/L (3.6-5.2) 09/08/18 14:04 Vancomycin Trough 19.1 ug/mL (5.0-10.0) H 09/16/18 04:30 Discharge Exam - Head Exam Head Exam: ATRAUMATIC, NORMAL INSPECTION, NORMOCEPHALIC Discharge Plan - Discharge Medications Prescriptions: AMPicillin/Sulbactam [Unasyn 3 gm] 3 gm IVPB Q6 #168 vial Vancomycin 1 GM [Vancomycin 1GM in Normal Saline Addvantage] 1 gm IVPB Q12 #70 bag - Follow Up Plan Condition: FAIR Disposition: TRANSF TO SNF Instructions: Osteomyelitis (DC) Additional Instructions: keep picc line dressing dry and clean Referrals: Haseeb Mcconnell MD [Staff Provider] - Taran Atwood MD, PhD [Family Provider] - Patricia Kang MD [Staff Provider] -
--- NOTE | 2018-09-21 13:02 | PQF ---
PROVIDER RESPONSE TEXT: Morbid obesity with BMI 43 REVIEWER QUERY TEXT: Clarification of Clinical Diagnostic Findings Please clarify documentation or clinical relevance for the clinical / diagnostic findings or whether those are insignificant or unable to be further specified. The patient's Clinical Indicators include: Pt. with a BMI of 43 ; Documentation of Dx. of Obstructive Sleep Apnea; pt. on CPAP; Please clarify if there is a clinical relevance for diagnosis such as Obesity;or Morbid Obesity. Query created by: Mely Brasher on 09/17/2018 4:23 PM Electronically signed by: Patricia Kang MD 09/21/2018 1:00 PM
== END 2018-09-16 16:40 | DRG 540 ==
LOC: H.ER 12:40 → H.ERHOLD 14:26 → H.TEL 22:54
PROVIDERS: ADMIT Internal Medicine; ATTEND Internal Medicine
PROC: 3E02340 Introduction of Influenza Vaccine into Muscle, Percutaneous Approach (ICD-10-PCS; 2018-09-09)
PROC: 3E0234Z Introduction of Serum, Toxoid and Vaccine into Muscle, Percutaneous Approach (ICD-10-PCS; 2018-09-09)
PROC: 05HY33Z Insertion of Infusion Device into Upper Vein, Percutaneous Approach (ICD-10-PCS; principal; 2018-09-10)
PROC: 3E03329 Introduction of Other Anti-infective into Peripheral Vein, Percutaneous Approach (ICD-10-PCS; 2018-09-10)
DX: M86.172 Other acute osteomyelitis, left ankle and foot (principal); Z68.41 Body mass index [BMI] 40.0-44.9, adult; S86.012D Strain of left Achilles tendon, subsequent encounter; J45.20 Mild intermittent asthma, uncomplicated; E66.01 Morbid (severe) obesity due to excess calories; I25.10 Atherosclerotic heart disease of native coronary artery without angina pectoris; I10 Essential (primary) hypertension; G47.33 Obstructive sleep apnea (adult) (pediatric); M19.042 Primary osteoarthritis, left hand; M19.041 Primary osteoarthritis, right hand; Z23 Encounter for immunization; Z96.653 Presence of artificial knee joint, bilateral; Z98.890 Other specified postprocedural states; Z91.81 History of falling; Z79.82 Long term (current) use of aspirin; Z74.01 Bed confinement status; W19.XXXD Unspecified fall, subsequent encounter